=== PATIENT | male | born 1950 | race Caucasian/White ===

== ENCOUNTER 2020-03-04 06:42 | Inpatient (IN) | payer MEDICARE, MEDICAID ==
[~2020-03-04] VITALS: Ht 177 cm; Wt 106.8 kg
[2020-03-04] MEDS ORDERED: RT-ALBUTEROL/IPRATROPIUM 3 ML (DUONEB) VIAL INH PRN (08:00)
[2020-03-04] MEDS ORDERED: IPRATROPIUM INHALER (ATROVENT) 12.9 GM INH SCH (08:00)
[2020-03-04] MEDS ORDERED: RT-ALBUTEROL/IPRATROPIUM 3 ML (DUONEB) VIAL INH ONE (08:00)
[2020-03-04] MEDS ORDERED: NS IV 1000 ML 1,000 ML IV SCH (08:15)
[2020-03-04] MEDS ORDERED: PROPOFOL DRIP (ICU) 100 ML IV ONE (08:16)
[2020-03-04] MEDS ORDERED: proPOfol 200 MG/20 ML (DIPRIVAN) VIAL IV ONE (08:17)
[2020-03-04 08:45] VITALS: BP 137/94
[2020-03-04] MEDS: RT-ALBUTEROL INHALER HFA (VENTOLIN HFA) 18 GM IH SCH ×5 (08:47→21:16)
[2020-03-04] MEDS: IPRATROPIUM INHALER (ATROVENT) 12.9 GM INH SCH ×5 (08:47→21:17)
--- NOTE | 2020-03-04 09:14 | Anesthesia-Procedure Note ---
Procedures/Interventions Procedure Start/Stop/Diagnosis Date of Procedure: Mar 04, 2020 Start Time: 08:30 Referring Physician: Jacqueline Preprocedural Diagnosis: Respiratory Failure, PUI Brief History Called by switch house operator to intubate ICU 7 that is respiratory failure and PUI. Pt. was sitting up in bed in obvious respiratory distress. Sats mid 90's on NC, Explained procedure to pt and need to intubate which pt consented. Pt was pre oxygenated with 100% O2 per ambu bag. Induction per RN with propofol 100mg and Anectine 100mg. Glidescope3# grade 1 view. #8.0 ETT x1 attempt. BS coarse b/l +etco2 per capnograph. Tube secured per RT at 23/lip. Left radial A-line started under sterile technique. Good blood flow and wave form noted on monitor. Report to RN. Stop Time: 09:00 Postprocedural Diagnosis: Respiratory failure, PUI Intubation RSI: Yes 100% pre-Ox, [id number]: Yes Intubation Method: orotracheal Videoscope used: Yes Medications: Propofol, Succinylcholine Mask Ventilation: positive Positive End Tide CO2: Yes Breath Sounds after Intubation: bilateral-equal Intubated with ease: Yes Intubation Complications: no complications Post Intubation Xray-done: Yes Arterial Line Arterial Line Catheter: 20G Type: Radial Location: Left Procedure: prepped, draped in sterile fashion, good wave-form was obtained, patient tolerated procedure well, no immediate complications, post procedure dressing applied TENA DUNBAR CRNA Mar 04, 2020 09:14
[2020-03-04 09:25] LABS: BASOPHILS % (AUTO) 0 % (0-10); EOSINOPHILS % (AUTO) 0 % (0-10); HEMATOCRIT 39 % (40-54); HEMOGLOBIN 12.2 g/dL (13.3-17.7); LYMPHOCYTES # (AUTO) 0.6 10^3/uL (1.0-4.0); LYMPHOCYTES % (AUTO) 4 % (12-44); MEAN CORPUSCULAR HEMOGLOBIN 30 pg (25-34); MEAN CORPUSCULAR HGB CONC 31 g/dL (32-36); MEAN CORPUSCULAR VOLUME 97 fL (80-99); MEAN PLATELET VOLUME 11.7 fL (9.0-12.2); MONOCYTES # (AUTO) 0.4 10^3/uL (0.0-1.0); MONOCYTES % (AUTO) 2 % (0-12); NEUTROPHILS # (AUTO) 15.4 10^3/uL (1.8-7.8); NEUTROPHILS % (AUTO) 93 % (42-75); PLATELET COUNT 212 10^3/uL (130-400); WHITE BLOOD COUNT 16.5 10^3/uL (4.3-11.0)
[2020-03-04] MEDS: PROPOFOL DRIP (ICU) 100 ML IV SCH ×4 (09:30→20:26)
[2020-03-04 09:34] LABS: ALBUMIN 3.7 GM/DL (3.2-4.5)
[2020-03-04 09:35] LABS: POTASSIUM 4.2 MMOL/L (3.6-5.0)
[2020-03-04 09:36] LABS: CALCIUM 9.5 MG/DL (8.5-10.1)
[2020-03-04 09:37] LABS: TOTAL PROTEIN 6.9 GM/DL (6.4-8.2)
[2020-03-04 09:39] LABS: BILIRUBIN,TOTAL 0.7 MG/DL (0.1-1.0)
[2020-03-04 09:40] LABS: PHOSPHORUS 4.7 MG/DL (2.3-4.7)
[2020-03-04 09:41] LABS: CREATININE SERUM 1.94 MG/DL (0.60-1.30)
[2020-03-04 09:43] LABS: LYMPHOCYTES % (MANUAL) 2 %; MAGNESIUM 1.8 MG/DL (1.6-2.4); MONOCYTES % (MANUAL) 2 %; NEUTROPHILS % (MANUAL) 96 %; RBC MORPH NORMAL
--- NOTE | 2020-03-04 10:20 | Diagnostic Imaging Report ---
INDICATION: Central line placement Frontal chest obtained at 1010 a.m. and compared to same day at 0910 a.m. ET tube and NG tube are unchanged. There is new right IJ central catheter tip overlying the mid SVC. There is no pneumothorax or pleural fluid. Central vascular congestion and interstitial edema versus infiltrate is stable. IMPRESSION: New right IJ central catheter tip overlying mid SVC. No pneumothorax or pleural fluid following device placement. Otherwise no change compared to earlier today. Dictated by: Dictated on workstation # [id number]
--- NOTE | 2020-03-04 10:45 | Occ Therapy Progress Note ---
Therapy Progress Note OT orders received. Pt is currently intubated/ sedated. OT to continue to monitor status and initiate tx when medically stable/ able to participate in skilled tx. SURESH BLACKWELL OTR Mar 04, 2020 10:45
--- NOTE | 2020-03-04 11:10 | Physical Therapy Progress Note ---
Therapy Progress Note Orders received to perform PT eval on patient, patient is currently intubated and sedated. Will monitor and start when patient is medically appropriate and able to participate. MAKENNA AUGUSTIN PT Mar 04, 2020 11:10
--- NOTE | 2020-03-04 11:19 | NUR ---
[address] MOORE TO INTUBATE [address] MEYER REQUESTED ABG 1 HR AFTER INTUBATION 0825 ANESTHESIA IN ROOM, RT IN ROOM 0837 PROPOFOL 100 MG AND SUCCS A00MG ADMINISTERED BY ANESTHESIA 0838 PT BEING BAGGED 0839 PT INTUBATED, GOOD COLOR CHANGE 0842 PROPOFOL DRIP STARTED 0847 ANESTHESIA ATTEMPTING ARTLINE 0849 OG DOWN, X RAY IN ROOM 0850 CONSULT FOR CENTRAL LINE ORDERED [address] AVILES FOR CENTRAL LINE [address] AVILES IN ROOM FOR CENTRAL LINE
--- NOTE | 2020-03-04 11:24 | History & Physical-Hospitalist ---
History of Present Illness HPI/Chief Complaint CC: Respiratory failure requiring urgent intubation HPI: This is a 69yoWM patient transferred from [facility] early this am who presented with dyspnea and hypoxia. PE dx 03/02/20 placed on OAC Eliquis and DC home and given steroids and Lopressor for tachycardia but then returned with increased dyspnea requiring ER visit then move to [facility] ICU and patient was decompensating so Dr Phillips ordered intubation. More records will be reviewed. Dr Shelton and I conferred at 1150am. COVID swab pending but rapid was negative. Exam Limitations: clinical condition (intubated) Date Seen 03/04/20 Time Seen by a Provider: 11:00 Attending Physician Julieta Wynne MD PCP Naye Paniagua Referring Physician Date of Admission Mar 04, 2020 at 09:15 Home Medications & Allergies Home Medications Reviewed patient Home Medication Reconciliation performed by pharmacy medication reconciliations medical laboratory technicians and/or nursing. Patients Allergies have been reviewed. Allergies Allergies Coded Allergies No Known Drug Allergies (Ltvxxgwwve04/7/20) Past Wsnlfce-Bvccth-Kxxkht Hx Past Med/Social Hx: Reviewed Nursing Past Med/Soc Hx, Reviewed and Corrections made Patient Social History Smoking Status: Former Smoker Past Medical History Respiratory: COPD, Pulmonary Embolism (03/02/20), Sleep Apnea Cardiac: High Cholesterol, Hypertension, Peripheral Vascular Genitourinary: Renal Failure Review of Systems Constitutional: see HPI, malaise, weakness Respiratory: dyspnea on exertion, short of breath, wheezing Physical Exam Physical Exam Vital Signs Bad tableHeight, Weight, BMI Height: '" Weight: lbs. oz. kg; BMI Method: General Appearance: Chronically ill, Other (intubated) Respiratory: No Accessory Muscle Use, No Respiratory Distress, Decreased Breath Sounds, Wheezing Cardiovascular: Regular Rate, Rhythm, No Edema, No Gallop, No JVD, No Murmur, Normal Peripheral Pulses Extremity: Normal Capillary Refill, Normal Inspection, Normal Range of Motion, Non Tender, No Calf Tenderness, No Pedal Edema Results Results/Procedures Labs Laboratory Tests 03/04/20 09:09 Patient resulted labs reviewed. Assessment/Plan Admission Diagnosis Assessment: Acute respiratory failure requiring emergent intubation Recent acute PE diagnosed 03/02/20 placed on Eliquis COPD h/o smoker LORETTA HTN HLP Elevated BNP Plan: ICU consultation Anticoagulation Vent management Supportive care Empiric abx COVID swab pending use PPE in meantime ARF management Consult Dr Rodriguez Admission Status: Inpatient Order (span 2 midnights) Reason for Inpatient Admission: resp failure Clinical Quality Measures DVT/VTE Risk/Contraindication: Risk Factor Score Per Nursin RFS Level Per Nursing on Admit: 4+=Very High SELMA WILDE DO Mar 04, 2020 11:24
[2020-03-04 11:28] VITALS: BP 114/84
[2020-03-04] MEDS: ADVAIR HFA 115/21 MCG INHALER 8 GM IH SCH ×2 (11:29→21:17)
--- NOTE | 2020-03-04 11:30 | NUR ---
"Received dietary consult regarding pt's vent status. Est kcal needs: 1850 kcal | 20 kcal/kg Est Pro needs: 74 g Pro | 0.8 g Pro/kg Note pt is currently intubated/sedated. If pt is to remain NPO for more than 3d, would recommend the following TF: Pulmocare 1.5 kcal at goal rate of 55ml/hr. Begin at 10ml/hr and increase by 10ml q6h as medically able and as tolerated. Monitor gastric residuals for tolerance. At goal rate, provides 1980 kcal (21 kcal/kg); 83 g Pro (0.9 g Pro/kg); and 1036ml free water. Flush with 75ml water q4h for hydration status. With flushes, provides 1486ml free water. Will continue to follow and reassess as pt needs, intake, and status change. Yulissa Bee MS RD LD [phone] (cell)"
[2020-03-04] MEDS: DexMEDEtomidine PRE MIX 100 ML IV SCH ×2 (11:48→20:14)
[2020-03-04] MEDS ORDERED: PHARMACY TO DOSE IV SCH (12:00)
[2020-03-04] MEDS ORDERED: SUCCINYLCHOLINE INJ 100 MG/5 ML SYR/VIAL INJ ONE (12:15)
[2020-03-04 12:20] LABS: ABG OXYGEN SATURATION 100 % (94-100); ABG PCO2 44 MMHG (35-45); ABG PO2 220 MMHG (79-93); ABG TCO2 24.5 MMOL/L (21.0-31.0)
[2020-03-04] MEDS ORDERED: LACTATED RINGERS 1,000 ML IV SCH (12:23)
[2020-03-04 12:24] LABS: ABG PH 7.33 (7.37-7.43); ALLENS TEST ARTLINE
[2020-03-04 12:25] LABS: PATIENT TEMP 36.4; VENTILATOR YES
[2020-03-04 12:26] LABS: INSPIRED O2 60%
[2020-03-04] MEDS ORDERED: PIPERACILLIN/TAZO 4.5 GM/NS 100 ML IV NR ×2 (12:30)
[2020-03-04] MEDS ORDERED: meTOprolol 5 MG/5 ML (LOPRESSOR) VIAL IV NR (13:00)
[2020-03-04] MEDS ORDERED: VANCOMYCIN 2000 MG/NS 500 ML IVPB IV NR ×2 (13:00)
[2020-03-04] MEDS: LACTATED RINGERS 1,000 ML IV SCH ×5 (13:12→21:59)
[2020-03-04] MEDS: ENOXAPARIN 100 MG/1 ML (LOVENOX) SYR SC SCH (13:13)
[2020-03-04 13:50] VITALS: BP 143/87
--- NOTE | 2020-03-04 15:28 | Diagnostic Imaging Report ---
PROCEDURE: US Venous Lower Ext Garett. TECHNIQUE: Multiple real-time grayscale images were obtained over the lower extremities in various projections, bilaterally. Additional duplex Doppler and color Doppler images were also obtained. INDICATION: Pulmonary embolism. FINDINGS: Right lower extremity deep venous system shows normal compressibility with normal response to augmentation and Valsalva. Left common femoral vein as well as the left superficial femoral vein are patent. There is thrombus within the left popliteal vein. Note is made of bilateral superficial femoral artery occlusions as well. No fluid collections are seen. IMPRESSION: 1. No evidence of right lower extremity DVT. 2. Findings consistent with left popliteal DVT. 3. Bilateral SFA occlusions. Dictated by: Dictated on workstation # [id number]
--- NOTE | 2020-03-04 15:38 | Consultation-Cardiology ---
HPI-Cardiology Cardiology Consultation Date of Consultation 03/04/20 Date of Admission Time Seen by Provider: 11:00 Indication: Acute respiratory failure, elevated BNP HPI Patient is a 69 y/o male transferred from [facility] who presented with dyspnea and hypoxemia. PMH reviewed showing patient diagnosed PE on 03/02/2020. Was started on Eliquis, returned to ER with c/o increased dyspnea. Patient was quickly decompensating and was intubated. COVID rapid test negative, PCR pending. Noted to be tachycardic with HR in the 120's Home Medications & Allergies Allergies: Coded Allergies: No Known Drug Allergies (Unverified , 03/04/20) Home Medication List Reviewed: Yes WRH-Gjrmvc-Mpxapr Hx Patient Social History Smoking Status: Former Smoker Past Medical History Unknown at this time. Review of Systems-General Review of Systems ROS-Unable to Obtain: unable to obtain Constitutional: other (vent dependent, cannot provide [place]SE[place]) Reviewed Test Results Reviewed Test Results Lab Laboratory Tests 03/04/20 09:09: White Blood Count 16.5H, Red Blood Count 4.06L, Hemoglobin 12.2L, Hematocrit 39L , Mean Corpuscular Volume 97, Mean Corpuscular Hemoglobin 30, Mean Corpuscular Hemoglobin Concent 31L, Red Cell Distribution Width 14.7H, Platelet Count 212, Mean Platelet Volume 11.7, Immature Granulocyte % (Auto) 1, Neutrophils (%) (Auto) 93H, Lymphocytes (%) (Auto) 4L, Monocytes (%) (Auto) 2, Eosinophils (%) (Auto) 0, Basophils (%) (Auto) 0, Neutrophils # (Auto) 15.4H, Lymphocytes # (Auto) 0.6L, Monocytes # (Auto) 0.4, Eosinophils # (Auto) 0.0, Basophils # (Auto) 0.0, Immature Granulocyte # (Auto) 0.1, Neutrophils % (Manual) 96, Lymphocytes % (Manual) 2, Monocytes % (Manual) 2, Blood Morphology Comment NORMAL, Sodium Level 139, Potassium Level 4.2, Chloride Level 107, Carbon Dioxide Level 18L, Anion Gap 14, Blood Urea Nitrogen 42H, Creatinine 1.94H, Estimat Glomerular Filtration Rate 34, BUN/Creatinine Ratio 22, Glucose Level 171H, Lactic Acid Level 2.28*H, Calcium Level 9.5, Corrected Calcium 9.7, Phosphorus Level 4.7, Magnesium Level 1.8, Total Bilirubin 0.7, Aspartate Amino Transf (AST/SGOT) 108H, Alanine Aminotransferase (ALT/SGPT) 91H, Alkaline Phosphatase 35L, B-Type Natriuretic Peptide 862.1H, Total Protein 6.9, Albumin 3.7, Procalcitonin 0.11H 03/04/20 09:40: Coronavirus 2019 (GERTRUDE) Negative 03/04/20 11:30: Blood Gas Puncture Site ART LINE, Blood Gas Patient Temperature 36.4, Arterial Blood pH 7.33*L, Arterial Blood Partial Pressure CO2 44, Arterial Blood Partial Pressure O2 220H, Arterial Blood HCO3 23, Arterial Blood Total CO2 24.5, Arterial Blood Oxygen Saturation 100, Arterial Blood Base Excess -2.0, Gregorio Test ARTLINE, Blood Gas Ventilator Setting YES, Blood Gas Inspired Oxygen 60% 03/04/20 11:35: Lactic Acid Level 1.36, Triglycerides Level 217H 03/04/20 13:35: Lactic Acid Level 1.87 Microbiology 03/04/20 Influenza Types A,B Antigen (ANGEL) - Final, Complete ECG Impression ECG Initial ECG Rhythm: S.Tach Physical Exam Physical Exam Vital Signs Bad tableHeight, Weight, BMI Height: '" Weight: lbs. oz. kg; BMI Method: General Appearance: Chronically ill, Other (intubated) Respiratory: No Accessory Muscle Use, No Respiratory Distress, Decreased Breath Sounds, Wheezing Cardiovascular: No Gallop, No JVD, No Murmur, Normal Peripheral Pulses, Tachycardia, Other (trace edema BLE) Extremity: Normal Capillary Refill, Normal Inspection, Normal Range of Motion, Non Tender, No Calf Tenderness, No Pedal Edema A/P-Cardiology Admission Diagnosis Acute respiratory failure Recent PE Left popliteal DVT Tachycardia Assessment/Plan Acute respiratory failure requiring intubation, currently intubated and sedated. Rapid Covid negative, PCR pending. I will try to obtain records from [facility] for further review. Elevated BNP, planning for 2D Echo once out of isolation Acute renal insufficiency, receiving IV fluid, monitor renal function Mild elevation in liver enzymes. Continue to monitor Recent PE dx 03/02/2020, was on Eliquis as outpatient. Currently on Lovenox Left popliteal DVT Tachycardia- appears to be sinus tachycardia. Started on low-dose beta blockers, monitor response and tolerance Obesity Bilat SFA occlusion noted on vascular study done early today. Thank you for allowing us to participate in the management of Mr. Burns. This is Amy Sharma PA-C, as a scribe for Dr Rodriguez. Patient was seen and evaluated with Amy, examination performed, management plan was discussed, agree with the current scribed note, I made few changes to the note using Italic font Patient is intubated, ventilator dependent Acute respiratory failure, pulmonary embolism, maintained on Lovenox Mildly elevated BNP, will evaluate 2-D echo Started on low-dose beta blockers and monitor heart rate. Clinical Quality Measures DVT/VTE Risk/Contraindication: Risk Factor Score Per Nursin RFS Level Per Nursing on Admit: 4+=Very High AMY VILLASENOR Mar 04, 2020 15:38 LUKAS RODRIGUEZ MD Mar 04, 2020 16:07
[2020-03-04] MEDS: meTOprolol 5 MG/5 ML (LOPRESSOR) VIAL IV SCH (17:37)
--- NOTE | 2020-03-04 17:58 | Consultation - Surgery ---
History of Present Illness History of Present Illness Patient Consulted On(matthew/time) 03/04/20 08:55 Date Seen by Provider: Mar 04, 2020 Time Seen by Provider: 08:55 Reason for Visit: Acute respiratory failure, elevated BNP History of Present Illness Consult requested by Dr. Guillermo for central line placement. Patient is a 69-year-old male transferred from outside facility for dyspnea. Patient was in respiratory distress and had to be intubated. Patient unable to provide any history. Patient needing central line placement. I have been asked to place a central line emergently. Allergies and Home Medications Allergies Coded Allergies: No Known Drug Allergies (Unverified , 03/04/20) Patient Home Medication List Home Medication List Reviewed: No (Unavailable at this time) Past Ivehdvv-Tmsafy-Kwqprz Hx Patient Social History Smoking Status: Former Smoker Cardiovascular Cardiac Disorders: High Cholesterol, Hypertension, Peripheral Vascular Genitourinary Genitourinary Disorders: Renal Failure Family Medical History Significant Family History: No Pertinent Family Hx (Patient intubated unable to provide any information.) Review of Systems-General ROS-Unable to Obtain: Patient intubated unable to obtain Physical Exam-General Problems Physical Exam Vital Signs Bad tableGeneral Appearance: obese, other (Intubated, sedated) HEENT: normal ENT inspection, other (Slight JVD) Neck: non-tender, supple, normal inspection (Slight JVD) Respiratory: other (intubated, equal chest rise) Cardiovascular: JVD (slight), tachycardia Gastrointestinal: soft, other (obese) Rectal: deferred Back: normal inspection, no CVA tenderness Extremities: normal inspection Neurologic/Psychiatric: normal mood/affect, oriented x 3, other (intubated sedated) Skin: normal color, warm/dry Lymphatic: no adenopathy Data Review Labs Laboratory Tests 03/04/20 09:09: White Blood Count 16.5H, Red Blood Count 4.06L, Hemoglobin 12.2L, Hematocrit 39L , Mean Corpuscular Volume 97, Mean Corpuscular Hemoglobin 30, Mean Corpuscular Hemoglobin Concent 31L, Red Cell Distribution Width 14.7H, Platelet Count 212, Mean Platelet Volume 11.7, Immature Granulocyte % (Auto) 1, Neutrophils (%) (Auto) 93H, Lymphocytes (%) (Auto) 4L, Monocytes (%) (Auto) 2, Eosinophils (%) (Auto) 0, Basophils (%) (Auto) 0, Neutrophils # (Auto) 15.4H, Lymphocytes # (Auto) 0.6L, Monocytes # (Auto) 0.4, Eosinophils # (Auto) 0.0, Basophils # (Auto) 0.0, Immature Granulocyte # (Auto) 0.1, Neutrophils % (Manual) 96, Lymphocytes % (Manual) 2, Monocytes % (Manual) 2, Blood Morphology Comment NORMAL, Sodium Level 139, Potassium Level 4.2, Chloride Level 107, Carbon Dioxide Level 18L, Anion Gap 14, Blood Urea Nitrogen 42H, Creatinine 1.94H, Estimat Glomerular Filtration Rate 34, BUN/Creatinine Ratio 22, Glucose Level 171H, Lactic Acid Level 2.28*H, Calcium Level 9.5, Corrected Calcium 9.7, Phosphorus Level 4.7, Magnesium Level 1.8, Total Bilirubin 0.7, Aspartate Amino Transf (AST/SGOT) 108H, Alanine Aminotransferase (ALT/SGPT) 91H, Alkaline Phosphatase 35L, B-Type Natriuretic Peptide 862.1H, Total Protein 6.9, Albumin 3.7, Procalcitonin 0.11H 03/04/20 09:40: Coronavirus 2019 (GERTRUDE) Negative 03/04/20 11:30: Blood Gas Puncture Site ART LINE, Blood Gas Patient Temperature 36.4, Arterial Blood pH 7.33*L, Arterial Blood Partial Pressure CO2 44, Arterial Blood Partial Pressure O2 220H, Arterial Blood HCO3 23, Arterial Blood Total CO2 24.5, Arterial Blood Oxygen Saturation 100, Arterial Blood Base Excess -2.0, Gregorio Test ARTLINE, Blood Gas Ventilator Setting YES, Blood Gas Inspired Oxygen 60% 03/04/20 11:35: Lactic Acid Level 1.36, Triglycerides Level 217H 03/04/20 13:35: Lactic Acid Level 1.87 Microbiology 03/04/20 Influenza Types A,B Antigen (ANGEL) - Final, Complete Assessment/Plan Assessment/Plan Assessment/Plan Acute respiratory failure Requiring intubation Needing central line Placed emergently Chest x ray pending after central line placed. Clinical Quality Measures DVT/VTE Risk/Contraindication: Risk Factor Score Per Nursin RFS Level Per Nursing on Admit: 4+=Very High ROBERT AVILES DO Mar 04, 2020 17:58
[2020-03-04] MEDS: PIPERACILLIN/TAZOBACTAM (BULK) 4.5 GM in NS (IVPB) 100 ML IV SCH (18:06)
[2020-03-04 19:12] LABS: BILIRUBIN,URINE NEGATIVE (NEGATIVE); CLARITY,URINE CLEAR; COLOR,URINE YELLOW; GLUCOSE, URINE (UA) NEGATIVE (NEGATIVE); KETONES,URINE NEGATIVE (NEGATIVE); LEUKOCYTE ESTERASE ,URINE NEGATIVE (NEGATIVE); NITRITE,URINE NEGATIVE (NEGATIVE); PH,URINE 5.5 (5-9); PROTEIN,URINE 1+ (NEGATIVE)
[2020-03-04 19:18] LABS: BACTERIA,URINE TRACE /HPF; RBC,URINE RARE /HPF; SQUAMOUS EPITHELIAL CELL,UR RARE /HPF; WBC,URINE 0-2 /HPF
[2020-03-04 21:17] VITALS: BP 143/87
[2020-03-04 21:21] VITALS: BP 143/87
[2020-03-05] MEDS: meTOprolol 5 MG/5 ML (LOPRESSOR) VIAL IV SCH ×4 (00:32→17:08)
[2020-03-05] MEDS: PROPOFOL DRIP (ICU) 100 ML IV SCH ×5 (01:00→23:35)
[2020-03-05 02:44] VITALS: BP 125/84
[2020-03-05] MEDS: RT-ALBUTEROL INHALER HFA (VENTOLIN HFA) 18 GM IH SCH ×6 (02:44→22:31)
[2020-03-05] MEDS: IPRATROPIUM INHALER (ATROVENT) 12.9 GM INH SCH ×6 (02:44→22:32)
[2020-03-05] MEDS: PIPERACILLIN/TAZOBACTAM (BULK) 4.5 GM in NS (IVPB) 100 ML IV SCH ×3 (02:55→17:08)
--- NOTE | 2020-03-05 03:06 | OPERATIVE REPORT ---
DATE OF SERVICE: 03/04/2020 PREOPERATIVE DIAGNOSIS: Need for central line due to respiratory failure. POSTOPERATIVE DIAGNOSIS: Need for central line due to respiratory failure. PROCEDURE PERFORMED: Right internal jugular vein ultrasound-guided central line placement. SURGEON: Robert Lazo DO ANESTHESIA: 1% lidocaine 3 mL. COMPLICATIONS: None. INDICATIONS: The patient is a 69-year-old male who was transferred to [facility]. He is in respiratory failure. The patient had to be intubated. It has been requested that a central line be placed. This is to be placed emergently. DESCRIPTION OF PROCEDURE: The patient was prepped and draped in sterile fashion. The right internal jugular vein was isolated using ultrasound and under ultrasound guidance the right internal jugular vein, there was some lidocaine infiltrated into the subcutaneous tissue. The right internal jugular vein was then accessed, dark nonpulsatile blood was withdrawn. Guidewire was inserted through the needle, needle was removed. A #11 blade scalpel was used to make a small skin incision. Dilator was then advanced over the guidewire and removed. The triple lumen catheter was then advanced over the guidewire and the guidewire was removed. All ports were accessed and flushed without difficulty. The catheter was secured in the usual fashion. The area was washed and dried and sterile bandage was applied. The patient tolerated procedure well without any complications. Chest x-ray pending. Job ID: [id number] DocumentID: [id number] Dictated Date: 03/04/2020 21:14:53 Non Licensed Operator Date: 03/05/2020 03:05:37 Dictated By: ROBERT LAZO DO
[2020-03-05 03:27] LABS: ABG BASE EXCESS -3.9 MMOL/L (-2.5-2.5); ABG OXYGEN SATURATION 97 % (94-100); ABG PCO2 36 MMHG (35-45); ABG PH 7.37 (7.37-7.43); ABG PO2 91 MMHG (79-93); ABG TCO2 21.8 MMOL/L (21.0-31.0)
[2020-03-05 03:31] LABS: ALLENS TEST LINE; INSPIRED O2 21%; VENTILATOR YES
[2020-03-05] MEDS: DexMEDEtomidine PRE MIX 100 ML IV SCH ×3 (03:58→21:01)
[2020-03-05] MEDS: LACTATED RINGERS 1,000 ML IV SCH ×3 (05:07→18:27)
[2020-03-05] MEDS: MAGNESIUM 1 GM/100 ML IVPB 100 ML IV SCH (05:29)
[2020-03-05] MEDS: POTASSIUM CL 10MEQ/50ML IVPB 50 ML IV SCH (05:29)
[2020-03-05] MEDS: KCL 20 MEQ TAB (K-DUR) PO SCH (05:29)
[2020-03-05 05:39] LABS: BASOPHILS % (AUTO) 0 % (0-10); EOSINOPHILS % (AUTO) 0 % (0-10); HEMATOCRIT 35 % (40-54); HEMOGLOBIN 11.5 g/dL (13.3-17.7); LYMPHOCYTES # (AUTO) 0.8 10^3/uL (1.0-4.0); LYMPHOCYTES % (AUTO) 8 % (12-44); MEAN CORPUSCULAR HEMOGLOBIN 31 pg (25-34); MEAN CORPUSCULAR HGB CONC 33 g/dL (32-36); MEAN CORPUSCULAR VOLUME 95 fL (80-99); MEAN PLATELET VOLUME 12.3 fL (9.0-12.2); MONOCYTES # (AUTO) 0.3 10^3/uL (0.0-1.0); MONOCYTES % (AUTO) 4 % (0-12); NEUTROPHILS # (AUTO) 8.1 10^3/uL (1.8-7.8); NEUTROPHILS % (AUTO) 88 % (42-75); PLATELET COUNT 159 10^3/uL (130-400); WHITE BLOOD COUNT 9.2 10^3/uL (4.3-11.0)
[2020-03-05 05:42] LABS: ALBUMIN 3.1 GM/DL (3.2-4.5); POTASSIUM 4.3 MMOL/L (3.6-5.0)
[2020-03-05 05:45] LABS: TOTAL PROTEIN 5.6 GM/DL (6.4-8.2)
[2020-03-05 05:46] LABS: BILIRUBIN,TOTAL 0.5 MG/DL (0.1-1.0)
[2020-03-05 05:48] LABS: CREATININE SERUM 1.77 MG/DL (0.60-1.30); INR 1.3 (0.8-1.4); PHOSPHORUS 5.6 MG/DL (2.3-4.7); PROTHROMBIN TIME PATIENT 16.8 SEC (12.2-14.7)
[2020-03-05 05:51] LABS: MAGNESIUM 1.7 MG/DL (1.6-2.4)
[2020-03-05 07:06] VITALS: BP 125/82
[2020-03-05] MEDS: ADVAIR HFA 115/21 MCG INHALER 8 GM IH SCH ×2 (07:06→18:50)
--- NOTE | 2020-03-05 07:35 | Progress Note - Surgery ---
GERTRUDIS NUNEZ MED STUDENT 03/05/20 0735: Subjective Date Seen by a Provider: Mar 05, 2020 Time Seen by a Provider: 07:00 Subjective/Events-last exam Patient remains intubated and sedated. BP continues to be stable via arterial line. Continues to be tachycardic in the 120's. Pt. continues to be afebrile. Review of Systems Unable to obtain as patient is intubated/sedated. Focused Exam Lactate Level 03/04/20 09:09: Lactic Acid Level 2.28*H 03/04/20 11:35: Lactic Acid Level 1.36 03/04/20 13:35: Lactic Acid Level 1.87 Objective Exam Bad tableGeneral Appearance: Chronically ill, Mild Distress, Other (intubated) Respiratory: No Accessory Muscle Use, No Respiratory Distress, Decreased Breath Sounds, Wheezing Cardiovascular: No Gallop, No JVD, No Murmur, Normal Peripheral Pulses, Tachycardia, Other (trace edema BLE) Peripheral Pulses: 1+ Dorsalis Pedis (R), 1+ Left Dors-Pedis (L); 2+ Radial Pulses (R), 2+ Radial Pulses (L) Gastrointestinal: soft, other (obese/Colostomy present) Extremity: Normal Capillary Refill Neurologic/Psychiatric: Other (Pt intubated/sedated. ) Results Lab Laboratory Tests 03/04/20 09:09: White Blood Count 16.5H, Red Blood Count 4.06L, Hemoglobin 12.2L, Hematocrit 39L , Mean Corpuscular Volume 97, Mean Corpuscular Hemoglobin 30, Mean Corpuscular Hemoglobin Concent 31L, Red Cell Distribution Width 14.7H, Platelet Count 212, Mean Platelet Volume 11.7, Immature Granulocyte % (Auto) 1, Neutrophils (%) (Auto) 93H, Lymphocytes (%) (Auto) 4L, Monocytes (%) (Auto) 2, Eosinophils (%) (Auto) 0, Basophils (%) (Auto) 0, Neutrophils # (Auto) 15.4H, Lymphocytes # (Auto) 0.6L, Monocytes # (Auto) 0.4, Eosinophils # (Auto) 0.0, Basophils # (Auto) 0.0, Immature Granulocyte # (Auto) 0.1, Neutrophils % (Manual) 96, Lymp hocytes % (Manual) 2, Monocytes % (Manual) 2, Blood Morphology Comment NORMAL, Sodium Level 139, Potassium Level 4.2, Chloride Level 107, Carbon Dioxide Level 18L, Anion Gap 14, Blood Urea Nitrogen 42H, Creatinine 1.94H, Estimat Glomerular Filtration Rate 34, BUN/Creatinine Ratio 22, Glucose Level 171H, Lactic Acid Level 2.28*H, Calcium Level 9.5, Corrected Calcium 9.7, Phosphorus Level 4.7, Magnesium Level 1.8, Total Bilirubin 0.7, Aspartate Amino Transf (AST/SGOT) 108H , Alanine Aminotransferase (ALT/SGPT) 91H, Alkaline Phosphatase 35L, B-Type Natriuretic Peptide 862.1H, Total Protein 6.9, Albumin 3.7, Procalcitonin 0.11H 03/04/20 09:40: Coronavirus (COVID-19)(PCR) Negative, Coronavirus 2019 (GERTRUDE) Negative 03/04/20 11:30: Blood Gas Puncture Site ART LINE, Blood Gas Patient Temperature 36.4, Arterial Blood pH 7.33*L, Arterial Blood Partial Pressure CO2 44, Arterial Blood Partial Pressure O2 220H, Arterial Blood HCO3 23, Arterial Blood Total CO2 24.5, Arterial Blood Oxygen Saturation 100, Arterial Blood Base Excess -2.0, Gregorio Test ARTLINE, Blood Gas Ventilator Setting YES, Blood Gas Inspired Oxygen 60% 03/04/20 11:35: Lactic Acid Level 1.36, Triglycerides Level 217H 03/04/20 13:35: Lactic Acid Level 1.87 03/04/20 18:50: Urine Color YELLOW, Urine Clarity CLEAR, Urine pH 5.5, Urine Specific [place] 1.020, Urine Protein 1+H, Urine Glucose (UA) NEGATIVE, Urine Ketones NEGATIVE, Urine Nitrite NEGATIVE, Urine Bilirubin NEGATIVE, Urine Urobilinogen 0.2, Urine Leukocyte Esterase NEGATIVE, Urine RBC (Auto) NEGATIVE, Urine RBC RARE, Urine WBC 0-2, Urine Squamous Epithelial Cells RARE, Urine Crystals NONE, Urine Bacteria TRACE, Urine Casts NONE, Urine Mucus NEGATIVE, Urine Culture Indicated NO 03/05/20 03:10: White Blood Count 9.2, Red Blood Count 3.73L, Hemoglobin 11.5L, Hematocrit 35L, Mean Corpuscular Volume 95, Mean Corpuscular Hemoglobin 31, Mean Corpuscular Hemoglobin Concent 33, Red Cell Distribution Width 14.8H, Platelet Count 159, Mean Platelet Volume 12.3H, Immature Granulocyte % (Auto) 0, Neutrophils (%) (Auto) 88H, Lymphocytes (%) (Auto) 8L, Monocytes (%) (Auto) 4, Eosinophils (%) (Auto) 0, Basophils (%) (Auto) 0, Neutrophils # (Auto) 8.1H, Lymphocytes # (Auto) 0.8L, Monocytes # (Auto) 0.3, Eosinophils # (Auto) 0.0, Basophils # (Auto) 0.0, Immature Granulocyte # (Auto) 0.0, Prothrombin Time 16.8H, INR Comment 1.3, Activated Partial Thromboplast Time 42H, Blood Gas Puncture Site LFT ARTLINE, Blood Gas Patient Temperature 36.0, Arterial Blood pH 7.37, Arterial Blood Partial Pressure CO2 36, Arterial Blood Partial Pressure O2 91, Arterial Blood HCO3 21L, Arterial Blood Total CO2 21.8, Arterial Blood Oxygen Saturation 97, Arterial Blood Base Excess -3.9L, Gregorio Test LINE, Blood Gas Ventilator Setting YES, Blood Gas Inspired Oxygen 21%, Sodium Level 140, Potas sium Level 4.3, Chloride Level 109H, Carbon Dioxide Level 18L, Anion Gap 13, Blood Urea Nitrogen 46H, Creatinine 1.77H, Estimat Glomerular Filtration Rate 38, BUN/Creatinine Ratio 26, Glucose Level 135H, Calcium Level 9.0, Corrected Calcium 9.7, Phosphorus Level 5.6H, Magnesium Level 1.7, Total Bilirubin 0.5, Aspartate Amino Transf (AST/SGOT) 140H, Alanine Aminotransferase (ALT/SGPT) 128H , Alkaline Phosphatase 28L, Total Protein 5.6L, Albumin 3.1L Microbiology 03/04/20 Influenza Types A,B Antigen (ANGEL) - Final, Complete Assessment/Plan Assessment/Plan Admission Diagonsis Acute on Chronic Respiratory Failure Assessment/Plan Acute respiratory failure Acute Renal Insufficiency Left popliteal DVT 1. Continue propofol and precedex 2. Continue IV antibiotics 3. Continue to monitor hemodynamic status Clinical Quality Measures DVT/VTE Risk/Contraindication: Risk Factor Score Per Nursin RFS Level Per Nursing on Admit: 4+=Very High ROBERT LAZO DO 03/05/20 1604: Subjective Subjective/Events-last exam Patient intubated/sedated. Central line no issues. Objective Exam General Appearance: Other (intubated) Cardiovascular: Tachycardia, Other (trace edema BLE) Gastrointestinal: soft, other (obese/Colostomy present) Extremity: Normal Capillary Refill Neurologic/Psychiatric: No Alert, No Oriented x3; Other (Pt intubated/sedated. ) Skin: Normal Color, Warm/Dry Lymphatic: No Adenopathy Assessment/Plan Assessment/Plan Assessment/Plan Acute respiratory failure Acute Renal Insufficiency Left popliteal DVT central line placed yesterday, no issues with it no surgical issues at this time, will sign off call if needed. Supervisory-Addendum Brief Verification & Attestation Participated in pt care: history, MDM, physical Personally performed: exam, history, MDM, supervision of care Care discussed with: Medical Student Procedures: n/a Results interpretation: Verified all documentation Verification and Attestation of Medical Student E/M Service A medical student performed and documented this service in my presence. I reviewed and verified all information documented by the medical student and made modifications to such information, when appropriate. I personally performed the physical exam and medical decision making. Robert Lazo, Mar 05, 2020,16:04 GERTRUDIS NUNEZ MED STUDENT Mar 05, 2020 07:35 ROBERT LAZO DO Mar 05, 2020 16:04
[2020-03-05] MEDS: PANTOPRAZOLE 40 MG (PROTONIX) VIAL IV SCH (08:10)
--- NOTE | 2020-03-05 08:13 | Physical Therapy Progress Note ---
Therapy Progress Note Patient remains sedated and intubated. PT will continue to monitor patient status and initiate treatment when patient is medically stable and able to actively participate with skilled therapy. THEO WARD PT Mar 05, 2020 08:13
--- NOTE | 2020-03-05 08:47 | Cardiology Progress Note ---
Subjective Date Seen by Provider: Mar 05, 2020 Time Seen by Provider: 08:45 Subjective/Events-last exam Patient is sedated and intubated Review of Systems General: Other (unable to provide review of systems) Focused Exam Lactate Level 03/04/20 09:09: Lactic Acid Level 2.28*H 03/04/20 11:35: Lactic Acid Level 1.36 03/04/20 13:35: Lactic Acid Level 1.87 Objective-Cardiology Exam Last Set of Vital Signs Bad tableI&O Intake and Output 03/05/20 00:00 Intake Total 7060 ml Output Total 1050 ml Balance 6010 ml Intake Oral 0 ml IV Total 7060 ml Output Urine Total 925 ml Gastric Drainage Total 125 ml Daily Weight Change No General: Other (sedated and intubated) HEENT: Atraumatic, PERRLA Neck: Supple Lungs: Normal Air Movement Heart: Normal S1, Normal S2, Other (tachycardia) Abdomen: Normal Bowel Sounds, Other (colostomy that) Extremities: No Clubbing, No Cyanosis, Other (mild edema) Skin: No Rashes Neuro: Other (sedated and intubated) Psych/Mental Status: Other (sedated and intubated) Results Lab Laboratory Tests 03/04/20 09:09 03/05/20 03:10 A/P-Cardiology Admission Diagnosis Acute respiratory failure Recent PE Left popliteal DVT Tachycardia Assessment/Plan Acute respiratory failure, ventilatory dependent, managed by primary care team DVT, probable PE, receiving Lovenox, blood pressure is stable still tachycardic Sinus tachycardia probably secondary to pulmonary embolism, receiving Lovenox, I will evaluate 2-D echo Acute renal insufficiency, renal function are improving slowly Elevated liver enzymes improving slowly. Continue to monitor Clinical Quality Measures DVT/VTE Risk/Contraindication: Risk Factor Score Per Nursin RFS Level Per Nursing on Admit: 4+=Very High LUKAS PIMENTEL MD Mar 05, 2020 08:46
[2020-03-05] MEDS ORDERED: CARV25TA PO (09:40)
[2020-03-05] MEDS ORDERED: APIX5TAB PO (09:40)
[2020-03-05] MEDS ORDERED: LORA-404 PO (09:40)
[2020-03-05] MEDS ORDERED: LISI40TA PO (09:40)
[2020-03-05] MEDS ORDERED: VENL75CA93 PO (09:40)
[2020-03-05] MEDS ORDERED: ALBU2.5V4 NEB (09:40)
[2020-03-05] MEDS ORDERED: FENO160T12 PO (09:40)
[2020-03-05] MEDS ORDERED: DIPH25CA79 PO (09:40)
[2020-03-05] MEDS ORDERED: UMEC1BLS INH (09:40)
[2020-03-05] MEDS ORDERED: HYDR25TA4 PO (09:40)
[2020-03-05] MEDS ORDERED: ALBU18HF2 INH (09:41)
--- NOTE | 2020-03-05 09:42 | NUR ---
UNABLE TO SPEAK WITH THE PT AT THIS TIME- I WAS ABLE TO GET AHOLD OF HIS ROLF AND WENT THRU THE EXT MED HISTORY TO COMPLETE THE MED REC HCTZ 25MG- DIRECTIONS SHOW 1 & 1/2 TAB DAILY BUT ACCORDING TO ROLF PT ONLY TAKES 1 TAB DAILY OTC MEDS: BENADRYL
--- NOTE | 2020-03-05 10:56 | Progress Note - Hospitalist ---
Subjective HPI/CC On Admission Date Seen by Provider: Mar 05, 2020 Time Seen by Provider: 11:00 CC: Respiratory failure requiring urgent intubation HPI: This is a 69yoWM patient transferred from [facility] early this am who presented with dyspnea and hypoxia. PE dx 03/02/20 placed on OAC Eliquis and DC home and given steroids and Lopressor for tachycardia but then returned with increased dyspnea requiring ER visit then move to [facility] ICU and patient was decompensating so Dr Phillips ordered intubation. More records will be reviewed. Dr Shelton and I conferred at 1150am. COVID swab pending but rapid was negative. Subjective/Events-last exam Dr Rodriguez read ECHO and EF is 10% Patient remains intubated Critical care maintained Bilateral thrombosis in legs noted Elevated troponin noted WBC 16 to 9.2 7.3736/ Focused Exam Lactate Level 03/04/20 09:09: Lactic Acid Level 2.28*H 03/04/20 11:35: Lactic Acid Level 1.36 03/04/20 13:35: Lactic Acid Level 1.87 Objective Exam Vital Signs Vital Signs Date Time Temp Pulse Resp B/P (MAP) Pulse Ox O2 Delivery O2 Flow Rate FiO2 03/05/20 21:01 36.6 126 24 123/84 98 Mechanical Ventilator 21.00 03/05/20 19:53 21 Capillary Refill : Greater Than 3 Seconds General Appearance: No Apparent Distress, WD/WN, Chronically ill, Other (sedated) Respiratory: Lungs Clear Cardiovascular: Regular Rate, Rhythm Results/Procedures Lab Laboratory Tests 03/05/20 03:10 Patient resulted labs reviewed. Assessment/Plan Assessment and Plan Assess & Plan/Chief Complaint Assessment: Acute respiratory failure requiring emergent intubation Recent acute PE diagnosed 03/02/20 placed on Eliquis COPD h/o smoker LORETTA HTN HLP Elevated BNP Bilateral DVT Elevated troponin Plan: ICU consultation Anticoagulation Vent management Supportive care Empiric abx COVID swab neg ARF management Consult Dr Rodriguez Clinical Quality Measures DVT/VTE Risk/Contraindication: Risk Factor Score Per Nursin RFS Level Per Nursing on Admit: 4+=Very High SELMA WILDE DO Mar 05, 2020 10:56
[2020-03-05 11:22] VITALS: BP 127/85
--- NOTE | 2020-03-05 12:13 | Occ Therapy Progress Note ---
Therapy Progress Note Continuing to monitor pt. Pt. continues to be sedated and on mechanical ventilation. 1213 ELISA DARLING OT Mar 05, 2020 12:13
[2020-03-05] MEDS: ENOXAPARIN 100 MG/1 ML (LOVENOX) SYR SC SCH (13:12)
[2020-03-05] MEDS: VANCOMYCIN 1500 MG/NS 500 ML IVPB IV SCH ×2 (13:14)
[2020-03-05 15:15] VITALS: BP 129/88
[2020-03-05 18:51] VITALS: BP 126/85
[2020-03-05 22:32] VITALS: BP 120/82
[2020-03-06] MEDS: meTOprolol 5 MG/5 ML (LOPRESSOR) VIAL IV SCH ×5 (00:15→23:17)
[2020-03-06] MEDS ORDERED: dilTIAZem DRIP PRE-MIX 0 ML IV ONE (01:23)
[2020-03-06] MEDS: LACTATED RINGERS 1,000 ML IV SCH ×4 (01:41→23:17)
[2020-03-06 02:12] VITALS: BP 120/81
[2020-03-06] MEDS: IPRATROPIUM INHALER (ATROVENT) 12.9 GM INH SCH ×6 (02:12→22:58)
[2020-03-06] MEDS: RT-ALBUTEROL INHALER HFA (VENTOLIN HFA) 18 GM IH SCH ×7 (02:12→22:59)
[2020-03-06] MEDS: PIPERACILLIN/TAZOBACTAM (BULK) 4.5 GM in NS (IVPB) 100 ML IV SCH ×3 (02:15→16:14)
[2020-03-06 03:54] LABS: ABG BASE EXCESS -3.5 MMOL/L (-2.5-2.5); ABG OXYGEN SATURATION 96 % (94-100); ABG PCO2 35 MMHG (35-45); ABG PH 7.39 (7.37-7.43); ABG PO2 83 MMHG (79-93); ABG TCO2 21.6 MMOL/L (21.0-31.0)
[2020-03-06 03:55] LABS: ALLENS TEST NEGATIVE; INSPIRED O2 21; PATIENT TEMP 37.3; VENTILATOR YES
[2020-03-06 03:56] LABS: BASOPHILS % (AUTO) 0 % (0-10); EOSINOPHILS % (AUTO) 0 % (0-10); HEMATOCRIT 36 % (40-54); HEMOGLOBIN 11.4 g/dL (13.3-17.7); LYMPHOCYTES # (AUTO) 2.6 10^3/uL (1.0-4.0); LYMPHOCYTES % (AUTO) 27 % (12-44); MEAN CORPUSCULAR HEMOGLOBIN 30 pg (25-34); MEAN CORPUSCULAR HGB CONC 32 g/dL (32-36); MEAN CORPUSCULAR VOLUME 96 fL (80-99); MEAN PLATELET VOLUME 11.8 fL (9.0-12.2); MONOCYTES # (AUTO) 0.5 10^3/uL (0.0-1.0); MONOCYTES % (AUTO) 5 % (0-12); NEUTROPHILS # (AUTO) 6.6 10^3/uL (1.8-7.8); NEUTROPHILS % (AUTO) 68 % (42-75); PLATELET COUNT 169 10^3/uL (130-400); WHITE BLOOD COUNT 9.8 10^3/uL (4.3-11.0)
[2020-03-06 04:05] LABS: POTASSIUM 3.8 MMOL/L (3.6-5.0)
[2020-03-06 04:07] LABS: CALCIUM 8.6 MG/DL (8.5-10.1)
[2020-03-06 04:11] LABS: CREATININE SERUM 1.85 MG/DL (0.60-1.30); PHOSPHORUS 3.6 MG/DL (2.3-4.7)
[2020-03-06 04:14] LABS: MAGNESIUM 1.8 MG/DL (1.6-2.4)
[2020-03-06] MEDS: PROPOFOL DRIP (ICU) 100 ML IV SCH ×4 (04:15→23:16)
[2020-03-06] MEDS: DexMEDEtomidine PRE MIX 100 ML IV SCH ×4 (04:16→23:17)
[2020-03-06] MEDS: MAGNESIUM 1 GM/100 ML IVPB 100 ML IV SCH (05:53)
[2020-03-06] MEDS: KCL 20 MEQ TAB (K-DUR) PO SCH (05:53)
[2020-03-06] MEDS: POTASSIUM CL 10MEQ/50ML IVPB 50 ML IV SCH (05:53)
[2020-03-06] MEDS: PANTOPRAZOLE 40 MG (PROTONIX) VIAL IV SCH (07:40)
--- NOTE | 2020-03-06 08:15 | Physical Therapy Progress Note ---
Therapy Progress Note Patient remains sedated and intubated. PT to continue to follow patient status and initiate treatment when medically stable and able to actively participate with skilled therapy. THEO WARD PT Mar 06, 2020 08:15
[2020-03-06] MEDS ORDERED: HEParin (CATH LAB) 2,000 ML IV ONE (09:33)
[2020-03-06] MEDS ORDERED: LIDOCAINE 1% INJ 20 ML 20 ML VIAL ONE (09:33)
--- NOTE | 2020-03-06 09:40 | Cardiology Progress Note ---
Subjective Date Seen by Provider: Mar 06, 2020 Time Seen by Provider: 09:37 Subjective/Events-last exam Patient is sedated and intubated, unable to provide history Review of Systems General: Other (sedated and intubated, unable to provide review of systems) Focused Exam Lactate Level 03/04/20 09:09: Lactic Acid Level 2.28*H 03/04/20 11:35: Lactic Acid Level 1.36 03/04/20 13:35: Lactic Acid Level 1.87 Objective-Cardiology Exam Last Set of Vital Signs Vital Signs 03/06/20 03/06/20 03/06/20 03/06/20 04:16 07:40 07:54 09:00 Temp 36.0 Pulse 129 Resp 24 B/P (MAP) 125/83 Pulse Ox 98 O2 Delivery Mechanical Ventilator O2 Flow Rate 21.00 Capillary Refill : Less Than 3 Seconds I&O Intake and Output 03/06/20 00:00 Intake Total 1500 ml Output Total 1205 ml Balance 295 ml Intake Oral 0 ml IV Total 1500 ml Output Urine Total 1205 ml General: Other (sedated and intubated) HEENT: Atraumatic, PERRLA Neck: Supple Lungs: Normal Air Movement Heart: Normal S1, Normal S2, Other (tachycardia) Abdomen: Normal Bowel Sounds, Other (colostomy that) Extremities: No Clubbing, No Cyanosis, Other (mild edema) Skin: No Rashes Neuro: Other (sedated and intubated) Psych/Mental Status: Other (sedated and intubated) Results Lab Laboratory Tests 03/06/20 03:38 A/P-Cardiology Admission Diagnosis Acute respiratory failure Recent PE Left popliteal DVT Tachycardia Assessment/Plan Acute respiratory failure, ventilatory dependent, managed by primary care team Patient has been having episode of shortness of breath and recurrent respiratory failure since December 2019, multiple hospitalization requiring BiPAP, deteriorated recently and transferred to our hospital due to lack of beds in [facility]. Congestive heart failure, acute left ventricular systolic dysfunction, ejection fraction 10 percent, unknown etiology, probably ischemic, no previous cardiac workup was done, discussed with his in length and details about the complexity of his condition, had slight elevation in troponin. I am planning to proceed with cardiac catheterization possible PTCA, procedure was explained in length, all pros and cons were explained, risk of complication including renal failure and sudden were explained. History of DVT, patient has been maintained on anticoagulation, reported by his that he had it since 2018 History of colostomy done in 2018. Acute renal insufficiency, slightly worsening renal function. Continue to monitor Elevated liver enzymes, probably secondary to poor cardiac output. Continue to monitor Clinical Quality Measures DVT/VTE Risk/Contraindication: Risk Factor Score Per Nursin RFS Level Per Nursing on Admit: 4+=Very High LUKAS PIMENTEL MD Mar 06, 2020 09:40
--- NOTE | 2020-03-06 09:41 | Cardiac Procedure Note-CS/ASA ---
Pre-Procedure Note Pre-Op Procedure Note H&P Reviewed The H&P was reviewed, patient examined and no changes noted. Date H&P Reviewed: Mar 06, 2020 Time H&P Reviewed: 09:40 Conscious Sedation Pre-Proced Time 09:40 ASA Score 3 For ASA 3 and 4: Consider anesthesia and medical clearance. Also, for patients with a history of failed moderate sedation consider anesthesia. Airway Lungs Heart ASA score ASA 1: a normal healthy patient ASA 2: a patient with a mild systemic disease (mid diabetes, controlled hypertension, obesity ASA 3: a patient with a severe systemic disease that limits activity (angina, COPD, prior Myocardial infarction) x ASA 4: a patient with an incapacitating disease that is a constant threat to life (CHF, renal failure) ASA 5: a moribund patient not expected to survive 24 hrs. (ruptured aneurysm) ASA 6: a declared brain- patient whose organs are being harvested. For emergent operations, add the letter E after the classification Mallampati Classification Grade 3 Sedation Plan Analgesia, Amnesia, Plan communicated to team members, Discussed options with patient/fam, Discussed risks with patient/fam Patient is sedated and intubated Risk and benefits discussed with his , we'll continue with sedation during the procedure The patient is an appropriate candidate to undergo the planned procedure, sedation, and anesthesia. The patient immediately re-assessed prior to indication. LUKAS PIMENTEL MD Mar 06, 2020 09:41
[2020-03-06] MEDS ORDERED: BUMETANIDE 1 MG/4 ML (BUMEX) VIAL IV NR (10:30)
--- NOTE | 2020-03-06 10:33 | Cardiac Cath Report ---
Cardiac Cath Report Physician (s)/[employer]er (s) Physician LUKAS PIMENTEL MD Pre-Procedure Diagnosis Pre-Procedure Diagnosis: congestive heart failure Post-Procedure Note Procedure Start Date: Mar 06, 2020 Name of Procedure: Left heart catheterization Findings/Procedure Note PROCEDURE NOTE: 69 years old gentleman with severe cardiomyopathy ejection fraction 10-15 percent, no previous cardiac history, discussed the management plan with his and recommended cardiac catheterization possible PTCA. After explaining the procedure to the , all pros and cons were explained, al l questions were answered. The patient signed the consent and then he was placed on the cardiac catheterization laboratory. Groin was prepped SL fashion local anesthesia was used. Sheath placed in the right femoral artery. Erica right and left catheter were used to access the coronary system. Erica right catheter advanced to the left ventricular cavity, pressure was measured no left ventriculogram was done At the end of the procedure the sheath was removed. Closure device was used FINDINGS: Hemodynamics LV 117/24, end-diastolic pressure 24 Aorta 100/80 ANATOMY: Left Main is free of obstructive disease Left Anterior Descending has mild disease nonobstructive disease Left Circumflex has mild disease nonobstructive disease Right Coronary Artery has mild ectasia with slow flow nonobstructive disease LV Gram was not done, pressure was measured, significantly elevated left ventricular end-diastolic pressure CONCLUSION: 1. Mild coronary artery disease nonobstructive disease 2. Severe cardiomyopathy nonischemic in nature with elevated left ventricular end-diastolic pressure DISCUSSION AND RECOMMENDATION: Conservative management is recommended, we will start on diuretic cautiously and evaluate tolerance and response Anesthesia Type: Conscious Sedation Estimated blood loss (mL): 15 ml Post-Procedure Diagnosis Post-operative diagnosis: Congestive heart failure Acute respiratory failure Hypotensive shock DVT LUKAS PIMENTEL MD Mar 06, 2020 10:33 am
--- NOTE | 2020-03-06 10:41 | Progress Note - Hospitalist ---
Subjective HPI/CC On Admission Date Seen by Provider: Mar 07, 2020 Time Seen by Provider: 10:00 CC: Respiratory failure requiring urgent intubation HPI: This is a 69yoWM patient transferred from [facility] early this am who presented with dyspnea and hypoxia. PE dx 03/02/20 placed on OAC Eliquis and DC home and given steroids and Lopressor for tachycardia but then returned with increased dyspnea requiring ER visit then move to [facility] ICU and patient was decompensating so Dr Phillips ordered intubation. More records will be reviewed. Dr Shelton and I conferred at 1150am. COVID swab pending but rapid was negative. Subjective/Events-last exam Patient had cath which revealed minimal coronary disease EF 10% is nonischemic cardiomyopathy Creat 1.8 Extubation will be attempted Dr Rodriguez reports his told him he has been in the hospital since November with ER visits and admits since that time Focused Exam Lactate Level 03/04/20 09:09: Lactic Acid Level 2.28*H 03/04/20 11:35: Lactic Acid Level 1.36 03/04/20 13:35: Lactic Acid Level 1.87 Objective Exam Vital Signs Vital Signs Date Time Temp Pulse Resp B/P (MAP) Pulse Ox O2 Delivery O2 Flow Rate FiO2 03/07/20 04:02 Mechanical Ventilator 21 03/07/20 03:36 21.00 03/07/20 03:00 106 100 03/07/20 02:53 36.7 52 Capillary Refill : Less Than 3 Seconds General Appearance: No Apparent Distress, Chronically ill, Other (intubated) Respiratory: Decreased Breath Sounds Cardiovascular: Regular Rate, Rhythm Results/Procedures Lab Laboratory Tests 03/07/20 02:34 Patient resulted labs reviewed. Assessment/Plan Assessment and Plan Assess & Plan/Chief Complaint Assessment: Acute respiratory failure requiring emergent intubation Recent acute PE diagnosed 03/02/20 placed on Eliquis COPD h/o smoker LORETTA HTN HLP Elevated BNP Bilateral DVT Elevated troponin Plan: ICU consultation Anticoagulation Vent management Supportive care Empiric abx COVID swab neg ARF management Consult Dr Rodriguez 03/06/20: s/p cardiac cath revealing non-ischemic cardiomyopathy Extubate? Clinical Quality Measures DVT/VTE Risk/Contraindication: Risk Factor Score Per Nursin RFS Level Per Nursing on Admit: 4+=Very High SELMA WILDE DO Mar 06, 2020 10:41
[2020-03-06] MEDS: ADVAIR HFA 115/21 MCG INHALER 8 GM IH SCH ×2 (10:51→19:27)
[2020-03-06 10:52] VITALS: BP 120/82
[2020-03-06 10:58] VITALS: BP 120/82
[2020-03-06] MEDS: ENOXAPARIN 100 MG/1 ML (LOVENOX) SYR SC SCH (11:16)
[2020-03-06] MEDS ORDERED: TROUGH ORDER-PHARMACY XX NR (12:00)
[2020-03-06] MEDS: VANCOMYCIN 1500 MG/NS 500 ML IVPB IV SCH ×2 (13:23)
[2020-03-06 15:06] VITALS: BP 130/79
--- NOTE | 2020-03-06 15:11 | NUR ---
pt is off sedation. pt is thrashing around. pt is very agitated. pt will not follow commands. rt does not think pt should be extubated today. Addendum: 03/06/20 at 1511 by RICKY BLANCO RT Amended: Links added.
[2020-03-06 16:15] LABS: ABG BASE EXCESS -3.8 MMOL/L (-2.5-2.5); ABG OXYGEN SATURATION 100 % (94-100); ABG PCO2 30 MMHG (35-45); ABG PH 7.43 (7.37-7.43); ABG PO2 191 MMHG (79-93); ABG TCO2 20.7 MMOL/L (21.0-31.0)
[2020-03-06 16:17] LABS: INSPIRED O2 40%; PATIENT TEMP 36.5; VENTILATOR YES
[2020-03-06 16:18] LABS: ALLENS TEST ART LINE
[2020-03-06 19:29] VITALS: BP 113/78
[2020-03-06 22:59] VITALS: BP 113/78
[2020-03-07] MEDS: DexMEDEtomidine PRE MIX 100 ML IV SCH ×6 (00:03→21:25)
[2020-03-07] MEDS: IPRATROPIUM INHALER (ATROVENT) 12.9 GM INH SCH ×6 (01:47→22:38)
[2020-03-07] MEDS: RT-ALBUTEROL INHALER HFA (VENTOLIN HFA) 18 GM IH SCH ×6 (01:47→22:37)
[2020-03-07 02:29] VITALS: BP 113/75
[2020-03-07] MEDS: PIPERACILLIN/TAZOBACTAM (BULK) 4.5 GM in NS (IVPB) 100 ML IV SCH ×3 (02:53→18:38)
[2020-03-07] MEDS: PROPOFOL DRIP (ICU) 100 ML IV SCH ×3 (02:53→10:07)
[2020-03-07 03:06] LABS: BASOPHILS # (AUTO) 0.1 10^3/uL (0.0-0.1); BASOPHILS % (AUTO) 1 % (0-10); EOSINOPHILS # (AUTO) 0.1 10^3/uL (0.0-0.3); EOSINOPHILS % (AUTO) 2 % (0-10); HEMATOCRIT 37 % (40-54); HEMOGLOBIN 11.7 g/dL (13.3-17.7); LYMPHOCYTES # (AUTO) 1.7 10^3/uL (1.0-4.0); LYMPHOCYTES % (AUTO) 18 % (12-44); MEAN CORPUSCULAR HEMOGLOBIN 31 pg (25-34); MEAN CORPUSCULAR HGB CONC 32 g/dL (32-36); MEAN CORPUSCULAR VOLUME 96 fL (80-99); MEAN PLATELET VOLUME 11.6 fL (9.0-12.2); MONOCYTES # (AUTO) 0.5 10^3/uL (0.0-1.0); MONOCYTES % (AUTO) 5 % (0-12); NEUTROPHILS # (AUTO) 6.6 10^3/uL (1.8-7.8); NEUTROPHILS % (AUTO) 74 % (42-75); PLATELET COUNT 154 10^3/uL (130-400)
[2020-03-07 03:15] LABS: ABG OXYGEN SATURATION 100 % (94-100); ABG PCO2 36 MMHG (35-45); ABG PH 7.37 (7.37-7.43); ABG PO2 185 MMHG (79-93); ABG TCO2 21.5 MMOL/L (21.0-31.0)
[2020-03-07 03:16] LABS: INSPIRED O2 50; PATIENT TEMP 36.8; VENTILATOR YES
[2020-03-07 03:20] LABS: POTASSIUM 3.6 MMOL/L (3.6-5.0)
[2020-03-07 03:21] LABS: CALCIUM 8.6 MG/DL (8.5-10.1)
[2020-03-07 03:25] LABS: CREATININE SERUM 1.79 MG/DL (0.60-1.30); PHOSPHORUS 3.6 MG/DL (2.3-4.7)
[2020-03-07 03:28] LABS: MAGNESIUM 1.8 MG/DL (1.6-2.4)
[2020-03-07] MEDS: POTASSIUM CL 10MEQ/50ML IVPB 50 ML IV SCH (04:09)
[2020-03-07] MEDS: KCL 20 MEQ TAB (K-DUR) PO SCH (04:09)
[2020-03-07] MEDS: MAGNESIUM 1 GM/100 ML IVPB 100 ML IV SCH (04:09)
[2020-03-07] MEDS: LACTATED RINGERS 1,000 ML IV SCH ×3 (05:21→21:25)
[2020-03-07] MEDS: meTOprolol 5 MG/5 ML (LOPRESSOR) VIAL IV SCH ×4 (05:24→23:22)
[2020-03-07 07:32] VITALS: BP 106/75
[2020-03-07] MEDS: ADVAIR HFA 115/21 MCG INHALER 8 GM IH SCH ×2 (07:32→18:55)
[2020-03-07] MEDS: PANTOPRAZOLE 40 MG (PROTONIX) VIAL IV SCH (08:34)
[2020-03-07] MEDS ORDERED: BUMETANIDE 1 MG/4 ML (BUMEX) VIAL IV NR (09:15)
--- NOTE | 2020-03-07 10:00 | Physical Therapy Progress Note ---
Therapy Progress Note pt remains on mechanical ventilator, no skilled intervention indicated at this time. ART FRAZIER PT Mar 07, 2020 10:00
--- NOTE | 2020-03-07 10:30 | Diagnostic Imaging Report ---
EXAMINATION: Chest 1 view HISTORY: Respiratory failure COMPARISON: 03/04/2020 FINDINGS: Heart size and pulmonary vasculature are stable. Lines and tubes are unchanged. There is a new small right pleural effusion with mild bibasilar atelectasis or consolidation. The osseous structures are intact. IMPRESSION: 1. New right pleural effusion with bibasilar atelectasis or consolidation. 2. Lines and tubes are unchanged. Dictated by: Dictated on workstation # [id number]
[2020-03-07 10:41] VITALS: BP 129/79
--- NOTE | 2020-03-07 11:12 | Cardiology Progress Note ---
Subjective Date Seen by Provider: Mar 07, 2020 Time Seen by Provider: 11:10 Subjective/Events-last exam Patient is laying down in bed, intubated, being weaned Review of Systems General: Other (unable to provide review of systems) Focused Exam Lactate Level 03/04/20 11:35: Lactic Acid Level 1.36 03/04/20 13:35: Lactic Acid Level 1.87 Objective-Cardiology Exam Last Set of Vital Signs Vital Signs 03/07/20 03/07/20 03/07/20 03/07/20 06:18 10:00 10:32 10:41 Temp 36.7 Pulse 126 Resp 21 B/P (MAP) 131/85 Pulse Ox 95 O2 Delivery Mechanical Ventilator O2 Flow Rate 21.00 FiO2 21 Capillary Refill : Less Than 3 Seconds I&O Intake and Output 03/07/20 00:00 Intake Total 2200 ml Output Total 2875 ml Balance -675 ml Intake Oral 0 ml IV Total 2200 ml Output Urine Total 2875 ml # Bowel Movements 1 General: Other (intubated) HEENT: Atraumatic, PERRLA Neck: Supple Lungs: Normal Air Movement Heart: Normal S1, Normal S2, Other (tachycardia) Abdomen: Normal Bowel Sounds, Other (colostomy that) Extremities: No Clubbing, No Cyanosis, Other (mild edema) Skin: No Rashes Neuro: Other (intubated) Psych/Mental Status: Other (intubated) Results Lab Laboratory Tests 03/07/20 02:34 A/P-Cardiology Admission Diagnosis Acute respiratory failure Recent PE Left popliteal DVT Tachycardia Assessment/Plan Acute respiratory failure, ventilatory dependent, being weaned daily, managed by primary care team Patient has been having episode of shortness of breath and recurrent respiratory failure since December 2019, multiple hospitalization requiring BiPAP, deteriorated recently and transferred to our hospital due to lack of beds in [facility]. Congestive heart failure, acute left ventricular systolic dysfunction, ejection fraction 10 percent, unknown etiology, nonischemic cardiomyopathy, started on low-dose beta blockers IV, continue to monitor next Cardiac catheterization carried out on March 06, 2020 showing mild coronary artery diseaseobstructive disease, elevated left ventricular end-diastolic pressure History of DVT, patient has been maintained on anticoagulation, reported by his that he had it since 2018 History of colostomy done in 2018. Acute renal insufficiency, given additional Bumex today, continue to monitor renal function Elevated liver enzymes, probably secondary to poor cardiac output. Continue to monitor Clinical Quality Measures DVT/VTE Risk/Contraindication: Risk Factor Score Per Nursin RFS Level Per Nursing on Admit: 4+=Very High LUKAS PIMENTEL MD Mar 07, 2020 11:12
--- NOTE | 2020-03-07 11:31 | Progress Note - Hospitalist ---
Subjective HPI/CC On Admission Date Seen by Provider: Mar 07, 2020 Time Seen by Provider: 11:20 CC: Respiratory failure requiring urgent intubation HPI: This is a 69yoWM patient transferred from [facility] early this am who presented with dyspnea and hypoxia. PE dx 03/02/20 placed on OAC Eliquis and DC home and given steroids and Lopressor for tachycardia but then returned with increased dyspnea requiring ER visit then move to [facility] ICU and patient was decompensating so Dr Phillips ordered intubation. More records will be reviewed. Dr Shelton and I conferred at 1150am. COVID swab pending but rapid was negative. Subjective/Events-last exam Still intubated SIMV 21% Labs ok Bumex just given Focused Exam Lactate Level Objective Exam Vital Signs Vital Signs Date Time Temp Pulse Resp B/P (MAP) Pulse Ox O2 Delivery O2 Flow Rate FiO2 03/07/20 17:15 36.7 129 21 129/79 99 Nasal Cannula 2.00 03/07/20 12:34 21 Capillary Refill : Less Than 3 Seconds General Appearance: No Apparent Distress, WD/WN, Chronically ill, Other (intubated) Respiratory: Lungs Clear Cardiovascular: Regular Rate, Rhythm Results/Procedures Lab Laboratory Tests 03/07/20 02:34 Patient resulted labs reviewed. Assessment/Plan Assessment and Plan Assess & Plan/Chief Complaint Assessment: Acute respiratory failure requiring emergent intubation Recent acute PE diagnosed 03/02/20 placed on Eliquis COPD h/o smoker LORETTA HTN HLP Elevated BNP Bilateral DVT Elevated troponin Plan: ICU consultation Anticoagulation Vent management Supportive care Empiric abx COVID swab neg ARF management Consult Dr Rodriguez 03/06/20: s/p cardiac cath revealing non-ischemic cardiomyopathy Extubate? 03/07/20: Extubate? Monitor closely Clinical Quality Measures DVT/VTE Risk/Contraindication: Risk Factor Score Per Nursin RFS Level Per Nursing on Admit: 4+=Very High SELMA WILDE DO Mar 07, 2020 11:31
[2020-03-07] MEDS: ENOXAPARIN 100 MG/1 ML (LOVENOX) SYR SC SCH (14:36)
--- NOTE | 2020-03-07 15:36 | NUR ---
AT THIS TIME, PATIENT AGITATED, PULLED CENTRAL LINE OUT. THIS RN HELD PRESSURE UNTIL ABLE TO APPLY DRESSING. TIP INTACT, CENTRAL LINE ON BED. THIS RN CALLED PATIENTS , ALLOWED PATIENT TO TALK WITH . PATIENT CALM FOR APPROX 5 MINUTES, POST PHONE CALL, ET BEGAN PULLING AT LINES AGAIN. THIS RN CONTACTED EICU REGARDING PT AGITATION ET PRECEDEX NOT WORKING, NEW ORDERS RECEIVED. SEE EMAR.
[2020-03-07] MEDS ORDERED: HALOPERIDOL 5 MG/ML (HALDOL) VIAL IM NR (15:45)
[2020-03-07] MEDS ORDERED: LORazepam INJ 2 MG/ML (ATIVAN) VIAL ONE (16:23)
[2020-03-07] MEDS: LORazepam INJ 2 MG/ML (ATIVAN) VIAL IM PRN (16:35)
[2020-03-07] MEDS ORDERED: LORazepam INJ 2 MG/ML (ATIVAN) VIAL IVP ONE (16:45)
[2020-03-08] MEDS: IPRATROPIUM INHALER (ATROVENT) 12.9 GM INH SCH ×6 (01:51→21:53)
[2020-03-08] MEDS: RT-ALBUTEROL INHALER HFA (VENTOLIN HFA) 18 GM IH SCH ×6 (01:51→21:52)
[2020-03-08] MEDS: DexMEDEtomidine PRE MIX 100 ML IV SCH ×5 (02:35→19:33)
[2020-03-08] MEDS: PIPERACILLIN/TAZOBACTAM (BULK) 4.5 GM in NS (IVPB) 100 ML IV SCH ×3 (02:35→18:01)
[2020-03-08] MEDS: LACTATED RINGERS 1,000 ML IV SCH ×2 (02:36→10:30)
[2020-03-08] MEDS: LORazepam INJ 2 MG/ML (ATIVAN) VIAL IM PRN ×2 (03:44→15:48)
[2020-03-08 04:37] LABS: BASOPHILS % (AUTO) 0 % (0-10); EOSINOPHILS # (AUTO) 0.2 10^3/uL (0.0-0.3); EOSINOPHILS % (AUTO) 2 % (0-10); HEMATOCRIT 38 % (40-54); LYMPHOCYTES # (AUTO) 0.9 10^3/uL (1.0-4.0); LYMPHOCYTES % (AUTO) 8 % (12-44); MEAN CORPUSCULAR HEMOGLOBIN 30 pg (25-34); MEAN CORPUSCULAR HGB CONC 31 g/dL (32-36); MEAN CORPUSCULAR VOLUME 97 fL (80-99); MEAN PLATELET VOLUME 11.3 fL (9.0-12.2); MONOCYTES # (AUTO) 0.5 10^3/uL (0.0-1.0); MONOCYTES % (AUTO) 4 % (0-12); NEUTROPHILS # (AUTO) 9.2 10^3/uL (1.8-7.8); NEUTROPHILS % (AUTO) 85 % (42-75); PLATELET COUNT 147 10^3/uL (130-400); WHITE BLOOD COUNT 10.8 10^3/uL (4.3-11.0)
[2020-03-08 04:47] LABS: POTASSIUM 3.6 MMOL/L (3.6-5.0)
[2020-03-08 04:53] LABS: CREATININE SERUM 1.76 MG/DL (0.60-1.30); PHOSPHORUS 3.8 MG/DL (2.3-4.7)
[2020-03-08 04:55] LABS: MAGNESIUM 1.7 MG/DL (1.6-2.4)
[2020-03-08] MEDS: POTASSIUM CL 10MEQ/50ML IVPB 50 ML IV SCH ×3 (05:27→08:54)
[2020-03-08] MEDS: MAGNESIUM 1 GM/100 ML IVPB 100 ML IV SCH ×3 (05:27→06:33)
[2020-03-08] MEDS: KCL 20 MEQ TAB (K-DUR) PO SCH (05:28)
[2020-03-08] MEDS: meTOprolol 5 MG/5 ML (LOPRESSOR) VIAL IV SCH ×3 (05:37→18:01)
[2020-03-08] MEDS: ADVAIR HFA 115/21 MCG INHALER 8 GM IH SCH ×2 (06:22→17:48)
--- NOTE | 2020-03-08 06:57 | Progress Note - Hospitalist ---
Subjective HPI/CC On Admission Date Seen by Provider: Mar 08, 2020 Time Seen by Provider: 12:30 CC: Respiratory failure requiring urgent intubation HPI: This is a 69yoWM patient transferred from [facility] early this am who presented with dyspnea and hypoxia. PE dx 03/02/20 placed on OAC Eliquis and DC home and given steroids and Lopressor for tachycardia but then returned with increased dyspnea requiring ER visit then move to [facility] ICU and patient was decompensating so Dr Phillips ordered intubation. More records will be reviewed. Dr Shelton and I conferred at 1150am. COVID swab pending but rapid was negative. Subjective/Events-last exam Patient was extubated and restless Patient worsened through the day and ripped out all of his lines and required re-intubation due to out of control ad aggressive behavior Labs remain stable Objective Exam Vital Signs Vital Signs Date Time Temp Pulse Resp B/P (MAP) Pulse Ox O2 Delivery O2 Flow Rate FiO2 03/08/20 19:33 37.3 123 16 129/94 99 Mechanical Ventilator 90.00 03/08/20 16:37 100 Capillary Refill : Less Than 3 Seconds General Appearance: No Apparent Distress, WD/WN, Chronically ill Respiratory: Chest Non Tender, Lungs Clear, Normal Breath Sounds, No Accessory Muscle Use, No Respiratory Distress Cardiovascular: No Edema, No Gallop, No JVD, No Murmur, Normal Peripheral Pulses, Tachycardia Results/Procedures Lab Laboratory Tests 03/08/20 04:25 Patient resulted labs reviewed. Assessment/Plan Assessment and Plan Assess & Plan/Chief Complaint Assessment: Acute respiratory failure requiring emergent intubation Recent acute PE diagnosed 03/02/20 placed on Eliquis COPD h/o smoker LORETTA HTN HLP Elevated BNP Bilateral DVT Elevated troponin Plan: ICU consultation Anticoagulation Vent management Supportive care Empiric abx COVID swab neg ARF management Consult Dr Rodriguez 03/06/20: s/p cardiac cath revealing non-ischemic cardiomyopathy Extubate? 03/07/20: Extubate? Monitor closely 03/08/20: Extubated but then reintubated Clinical Quality Measures DVT/VTE Risk/Contraindication: Risk Factor Score Per Nursin RFS Level Per Nursing on Admit: 4+=Very High SELMA WILDE DO Mar 08, 2020 06:57
[2020-03-08] MEDS: PANTOPRAZOLE 40 MG (PROTONIX) VIAL IV SCH (07:35)
[2020-03-08 10:47] VITALS: BP 140/106
[2020-03-08 10:50] LABS: ABG BASE EXCESS -3.8 MMOL/L (-2.5-2.5); ABG OXYGEN SATURATION 93 % (94-100); ABG PCO2 36 MMHG (35-45); ABG PH 7.37 (7.37-7.43); ABG PO2 66 MMHG (79-93)
[2020-03-08 10:51] LABS: ALLENS TEST YES-POS; INSPIRED O2 5 L; PATIENT TEMP 35.6; VENTILATOR NO
--- NOTE | 2020-03-08 11:00 | Cardiology Progress Note ---
Subjective Date Seen by Provider: Mar 08, 2020 Time Seen by Provider: 10:57 Subjective/Events-last exam Patient is lethargic, not following commands, not opening his eyes Review of Systems General: Other (unable to provide review of systems) Objective-Cardiology Exam Last Set of Vital Signs Vital Signs 03/07/20 03/08/20 03/08/20 03/08/20 03/08/20 16:00 07:28 08:00 08:51 10:47 Temp 37.6 Pulse 125 Resp 17 B/P (MAP) 126/109 Pulse Ox 96 O2 Delivery Nasal Cannula O2 Flow Rate 40.00 FiO2 21 Capillary Refill : Less Than 3 Seconds I&O l Intake and Output 03/08/20 00:00 Intake Total 0 ml Output Total 3700 ml Balance -3700 ml Intake Oral 0 ml Output Urine Total 3700 ml General: Other (not following commands, not opening his eyes) HEENT: Atraumatic Neck: Supple Lungs: Normal Air Movement Heart: Normal S1, Normal S2, Other (tachycardia) Abdomen: Normal Bowel Sounds, Other (colostomy Bag) Extremities: No Clubbing, No Cyanosis, Other (mild edema) Skin: No Rashes Neuro: Other (not opening his eyes or following commands) Psych/Mental Status: Other (not opening his eyes or following commands) Results Lab Laboratory Tests 03/08/20 04:25 A/P-Cardiology Admission Diagnosis Acute respiratory failure Recent PE Left popliteal DVT Tachycardia Assessment/Plan Status post acute respiratory failure, extubated, still lethargic and hypoxemic, not following commands or opening his eyes, followed by primary care team Patient has been having episode of shortness of breath and recurrent respiratory failure since December 2019, multiple hospitalization requiring BiPAP, deteriorated recently and transferred to our hospital due to lack of beds in [facility]. Congestive heart failure, acute left ventricular systolic dysfunction, ejection fraction 10 percent, unknown etiology, nonischemic cardiomyopathy, started on low-dose beta blockers IV, continue to monitor Cardiac catheterization carried out on March 06, 2020 showing mild coronary artery disease non-obstructive disease, elevated left ventricular end-diastolic pressure History of DVT, patient has been maintained on anticoagulation, reported by his that he had it since 2018 History of colostomy done in 2018. Acute renal insufficiency, I will give additional Bumex 0.5 mg IV today, continue to monitor renal function closely Elevated liver enzymes, probably secondary to poor cardiac output. Continue to monitor Clinical Quality Measures DVT/VTE Risk/Contraindication: Risk Factor Score Per Nursin RFS Level Per Nursing on Admit: 4+=Very High LUKAS PIMENTEL MD Mar 08, 2020 11:00
[2020-03-08] MEDS: ENOXAPARIN 100 MG/1 ML (LOVENOX) SYR SC SCH (11:57)
[2020-03-08 14:12] VITALS: BP 134/95
--- NOTE | 2020-03-08 15:15 | NUR ---
AT THIS TIME PATIENT AGITATED, THIS RN ENTERED ROOM. PATIENT BEGAN HOLLARING, THIS RN YELLED FOR HELP ET PCT ENTERED ROOM. PATIENT IV TO L CHEST IS NO LONGER GOOD. THIS RN ATTEMPTED TO REDIRECT PATIENT WITH NO SUCCESS. PATIENT ATTEMPTED TO PUNCH PCT IN FACE, PCT ABLE TO MOVE OUT OF WAY, BUT PATIENT MADE CONTACT WITH PCT ARM. PATIENT THEN ATTEMPTED TO PUNCH THIS RN IN FACE, BUT WAS UNSUCCESSFUL. PATIENT GIVEN PRN MEDICATION FOR AGITATION. THIS RN ATTEMPTED TO CALL PT SPOUSE FOR PT TO SPEAK WITH SPOUSE, PATIENT SPOKE WITH SPOUSE, NO SUCCESS IN REDIRECTING PT. PATIENT IS NOT ORIENTED, NOT APPROPRIATELY BREATHING ET NOT KEEPING OXYGEN ON. UNABLE TO GET O2 SAT ON PAITNET PATIENT CONTINUES TO BE AGITATED WITH STAFF. NOTIFIED DR. WILDE AT THIS TIME OF PTS BEHAVIORS ET CONDITION.
[2020-03-08] MEDS ORDERED: proPOfol 200 MG/20 ML (DIPRIVAN) VIAL IV ONE (16:06)
[2020-03-08] MEDS ORDERED: PROPOFOL DRIP (ICU) 100 ML IV ONE (16:06)
[2020-03-08] MEDS ORDERED: NS IV 1000 ML 1,000 ML ONE (16:06)
[2020-03-08 16:37] VITALS: BP 118/54
[2020-03-08] MEDS ORDERED: ETOMIDATE IV SOLN 20 MG/10 ML VIAL IV ONE (16:44)
[2020-03-08] MEDS ORDERED: ROCURONIUM 10 MG/ML 5 ML SYRINGE IV ONE (16:44)
--- NOTE | 2020-03-08 17:43 | Diagnostic Imaging Report ---
INDICATION: Central line placement, intubated. COMPARISON: 03/07/2020 at 9:55 a.m. EXAMINATION: Single view of the chest was obtained. FINDINGS: ET tube and NG tube are in stable position. There is new right IJ catheter overlying the right apex. There is no pneumothorax. Increasing infiltrates in the upper lung zones, bilaterally. There is a small effusion in the right base. Heart remains enlarged. IMPRESSION: 1. Right IJ catheter overlying the right apex. No pneumothorax identified. Remaining tubes and lines are unchanged. 2. Increasing infiltrates in the upper lung zones. Dictated by: Dictated on workstation # [id number]
[2020-03-08 17:49] VITALS: BP 126/89
[2020-03-08] MEDS: PROPOFOL DRIP (ICU) 100 ML IV SCH ×2 (17:54→22:01)
--- NOTE | 2020-03-08 18:33 | NUR ---
TIME LINE NOTED 1620: DR. JULIAN ET STUDENT IN PT ROOM 1624: ETOMIDATE 20 1626: ETOMIDATE 20 1627: ROCURONIUM 50 1630: PATIENT SUCCESSFULLY INTUBATED 8.0 TUBE, 27 END TIDAL CO2 PRESENT, 24 AT GUMS. 1645: CENTRAL LINE PLACE BY DR. JULIAN ET STUDENT
--- NOTE | 2020-03-08 18:38 | Procedure/Intervention Note ---
Procedures/Interventions Lumen: triple Central Line Procedure: betadine prep (chlorhexidine prep), sterile drapes applied, sterile dressing applied Position: internal jugular (R) Anesthesia: Lidocaine Volume Anesthetic (ccs): 3 Complications: none Post Position: sutured, good blood return, position confirmed w/ CXR Risks, benefits and alternatives were discussed with the patient and emergency consent was obtained for the procedure. He was positioned in the usual format and using the usual sterile garment and drapes the patient was dressed out. The skin was thoroughly cleaned with the supplied chlorhexidine prep. After the prep and dried a sterile drape was placed. The 15 cm 7 Nauruan triple-lumen catheter was flushed with sterile saline. We used ultrasound guidance to pass the introducer needle into the right internal jugular without difficulty. A guidewire was placed easily without difficulty. No ectopy was seen on the monitor. The supplied 11 blade scalpel was used to make a 2 mm incision at the inferior portion of the introducer needle. The introducer needle was replaced with the dilator. The dilator was taken out and the patient had the central lumen of the triple lumen catheter threaded over the guidewire and placed at 15 cm. The guidewire was removed and the triple-lumen catheter was stitched in place using the supplied braided stitch at 2 different points. The catheter withdrew blood and flushed easily. A sterile dressing was placed over the catheter. The patient tolerated the procedure well. A chest x-ray was obtained that demonstrated no pneumothorax and a new interval central catheter over the shadow of the right internal jugular down the superior vena cava and terminating just proximal to the right atria. Reason for Intubation: protect the airway Date of ETT Placement: Mar 08, 2020 Time of ETT Placement: 1630 Intubation Method: orotracheal Tube Size: 8.00 Medications: Etomidate (40 mg), Rocuronium (50) Positive End Tide CO2: Yes Breath Sounds after Intubation: bilateral-equal Intubation Complications: no complications Post Intubation Xray: Yes successful ablation couple centimeters above the paola without PTX ANEUDY JULIAN Mar 08, 2020 18:38
[2020-03-08 21:53] VITALS: BP 132/100
[2020-03-08 21:55] VITALS: BP 132/100
[2020-03-09] VITALS (7 sets, daily range): BP systolic 124–148; BP diastolic 88–107
[2020-03-09] MEDS: DexMEDEtomidine PRE MIX 100 ML IV SCH ×6 (00:16→21:30)
[2020-03-09] MEDS: LACTATED RINGERS 1,000 ML IV SCH ×3 (00:17→03:55)
[2020-03-09] MEDS: meTOprolol 5 MG/5 ML (LOPRESSOR) VIAL IV SCH ×7 (00:25→23:40)
[2020-03-09] MEDS: RT-ALBUTEROL INHALER HFA (VENTOLIN HFA) 18 GM IH SCH ×6 (01:40→21:25)
[2020-03-09] MEDS: IPRATROPIUM INHALER (ATROVENT) 12.9 GM INH SCH ×6 (01:41→21:25)
[2020-03-09] MEDS: PIPERACILLIN/TAZOBACTAM (BULK) 4.5 GM in NS (IVPB) 100 ML IV SCH (02:06)
[2020-03-09] MEDS: PROPOFOL DRIP (ICU) 100 ML IV SCH ×5 (02:07→21:30)
[2020-03-09 02:31] LABS: ABG BASE EXCESS -2.8 MMOL/L (-2.5-2.5); ABG OXYGEN SATURATION 100 % (94-100); ABG PCO2 44 MMHG (35-45); ABG PO2 179 MMHG (79-93); ABG TCO2 23.7 MMOL/L (21.0-31.0); BASOPHILS % (AUTO) 0 % (0-10); EOSINOPHILS # (AUTO) 0.3 10^3/uL (0.0-0.3); EOSINOPHILS % (AUTO) 4 % (0-10); HEMATOCRIT 33 % (40-54); HEMOGLOBIN 10.4 g/dL (13.3-17.7); LYMPHOCYTES # (AUTO) 2.3 10^3/uL (1.0-4.0); LYMPHOCYTES % (AUTO) 27 % (12-44); MEAN CORPUSCULAR HEMOGLOBIN 31 pg (25-34); MEAN CORPUSCULAR HGB CONC 32 g/dL (32-36); MEAN CORPUSCULAR VOLUME 97 fL (80-99); MEAN PLATELET VOLUME 11.4 fL (9.0-12.2); MONOCYTES # (AUTO) 0.4 10^3/uL (0.0-1.0); MONOCYTES % (AUTO) 4 % (0-12); NEUTROPHILS # (AUTO) 5.4 10^3/uL (1.8-7.8); NEUTROPHILS % (AUTO) 64 % (42-75); PLATELET COUNT 119 10^3/uL (130-400); WHITE BLOOD COUNT 8.5 10^3/uL (4.3-11.0)
[2020-03-09 02:32] LABS: ALLENS TEST POSITIVE; INSPIRED O2 80; PATIENT TEMP 36.7; VENTILATOR YES
[2020-03-09 02:34] LABS: ABG PH 7.33 (7.37-7.43)
[2020-03-09 02:39] LABS: POTASSIUM 3.5 MMOL/L (3.6-5.0)
[2020-03-09 02:40] LABS: CALCIUM 8.4 MG/DL (8.5-10.1)
[2020-03-09 02:44] LABS: PHOSPHORUS 3.3 MG/DL (2.3-4.7)
[2020-03-09 02:45] LABS: CREATININE SERUM 1.45 MG/DL (0.60-1.30)
[2020-03-09 02:47] LABS: MAGNESIUM 1.9 MG/DL (1.6-2.4)
[2020-03-09] MEDS: POTASSIUM CL 10MEQ/50ML IVPB 50 ML IV SCH ×3 (04:19→05:04)
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
[2020-03-09 04:59] LABS: ALBUMIN 2.7 GM/DL (3.2-4.5); POTASSIUM 3.6 MMOL/L (3.6-5.0)
[2020-03-09 05:00] LABS: CALCIUM 8.3 MG/DL (8.5-10.1)
[2020-03-09 05:01] LABS: TOTAL PROTEIN 4.9 GM/DL (6.4-8.2)
[2020-03-09 05:03] LABS: BILIRUBIN,TOTAL 0.6 MG/DL (0.1-1.0)
[2020-03-09] MEDS: MAGNESIUM 1 GM/100 ML IVPB 100 ML IV SCH (05:04)
[2020-03-09 05:05] LABS: CREATININE SERUM 1.47 MG/DL (0.60-1.30)
[2020-03-09] MEDS: KCL 20 MEQ TAB (K-DUR) PO SCH (05:05)
[2020-03-09] MEDS ORDERED: BUMETANIDE 1 MG/4 ML (BUMEX) VIAL IV ONE (06:15)
[2020-03-09] MEDS: ADVAIR HFA 115/21 MCG INHALER 8 GM IH SCH ×2 (06:16→18:28)
--- NOTE | 2020-03-09 07:57 | Diagnostic Imaging Report ---
INDICATION: Shortness of breath Comparison made with prior examination of 03/08/2020. FINDINGS: There is cardiomegaly and moderate congestive failure. There is a right pleural effusion. No pneumothorax. Lines and tubes are in satisfactory position. IMPRESSION: Cardiomegaly and moderate congestive failure with a right pleural effusion. Dictated by: Dictated on workstation # [id number]
--- NOTE | 2020-03-09 08:24 | Physical Therapy Progress Note ---
Therapy Progress Note Patient reintubated. PT to continue to follow. THEO WARD PT Mar 09, 2020 08:24
[2020-03-09] MEDS: BUMETANIDE 1 MG/4 ML (BUMEX) VIAL IV SCH (08:48)
[2020-03-09] MEDS: PANTOPRAZOLE 40 MG (PROTONIX) VIAL IV SCH (09:26)
--- NOTE | 2020-03-09 09:34 | Progress Note - Hospitalist ---
Subjective HPI/CC On Admission Date Seen by Provider: Mar 09, 2020 Time Seen by Provider: 09:00 CC: Respiratory failure requiring urgent intubation HPI: This is a 69yoWM patient transferred from [facility] early this am who presented with dyspnea and hypoxia. PE dx 03/02/20 placed on OAC Eliquis and DC home and given steroids and Lopressor for tachycardia but then returned with increased dyspnea requiring ER visit then move to [facility] ICU and patient was decompensating so Dr Phillips ordered intubation. More records will be reviewed. Dr Shelton and I conferred at 1150am. COVID swab pending but rapid was negative. Subjective/Events-last exam Pt remains sedated ABG is 7.30/44/179 Re-intubated after extubated yesterday WBC 8.5 Hgb 10.4 Objective Exam Vital Signs Vital Signs Date Time Temp Pulse Resp B/P (MAP) Pulse Ox O2 Delivery O2 Flow Rate FiO2 03/10/20 04:00 36.0 125 142/105 94 Mechanical Ventilator 30.00 03/10/20 02:07 16 40 Capillary Refill : Less Than 3 Seconds General Appearance: No Apparent Distress, WD/WN, Chronically ill HEENT: PERRL/EOMI, Pharynx Normal, Moist Mucous Membranes, Other (ET in place) Neck: Normal Inspection, Non Tender, Supple, Carotid Bruit Respiratory: Chest Non Tender, Lungs Clear, No Accessory Muscle Use, No Respiratory Distress, Decreased Breath Sounds Cardiovascular: Regular Rate, Rhythm, No Edema, No Gallop, No JVD, No Murmur, Normal Peripheral Pulses, Tachycardia Gastrointestinal: Normal Bowel Sounds, No Organomegaly, No Pulsatile Mass, Soft Back: Normal Inspection, No Vertebral Tenderness Extremity: Normal Capillary Refill, Normal Inspection, Non Tender, No Calf Tenderness, No Pedal Edema Skin: Normal Color, Warm/Dry Lymphatic: No Adenopathy Results/Procedures Lab Laboratory Tests 03/10/20 02:28 Patient resulted labs reviewed. Assessment/Plan Assessment and Plan Assess & Plan/Chief Complaint Assessment: Acute respiratory failure requiring emergent intubation Recent acute PE diagnosed 03/02/20 placed on Eliquis COPD h/o smoker LORETTA HTN HLP Elevated BNP Bilateral DVT Elevated troponin Plan: ICU consultation Anticoagulation Vent management Supportive care Empiric abx COVID swab neg ARF management Consult Dr Rodriguez 03/06/20: s/p cardiac cath revealing non-ischemic cardiomyopathy Extubate? 03/07/20: Extubate? Monitor closely 03/08/20: Extubated but then reintubated 03/09/20: Sedated Maintain intubation Appreciate critical care Clinical Quality Measures DVT/VTE Risk/Contraindication: Risk Factor Score Per Nursin RFS Level Per Nursing on Admit: 4+=Very High SELMA WILDE DO Mar 09, 2020 09:34
--- NOTE | 2020-03-09 10:35 | Progress Note - Cardiology ---
Cardiology SOAP Progress Note Subjective: Intubated and sedated Objective: I&O/Vital Signs 03/09/20 03/09/20 03/09/20 03/09/20 00:00 00:00 00:16 01:00 Temp 36.8 36.8 Pulse 123 123 123 Resp 16 B/P (MAP) 130/98 137/97 Pulse Ox 99 99 99 O2 Delivery Mechanical Ventilator Mechanical Ventilator Mechanical Ventilator O2 Flow Rate 80.00 80.00 FiO2 80 03/09/20 03/09/20 03/09/20 03/09/20 01:00 01:41 01:42 02:00 Temp 36.8 36.8 Pulse 123 123 123 123 Resp 16 16 B/P (MAP) 127/96 127/96 Pulse Ox 100 100 100 99 O2 Delivery Mechanical Ventilator Mechanical Ventilator O2 Flow Rate 80.00 70.00 FiO2 70 70 03/09/20 03/09/20 03/09/20 03/09/20 02:07 03:00 04:00 04:00 Temp 36.7 36.6 Pulse 123 123 123 B/P (MAP) 127/96 131/97 133/101 Pulse Ox 99 99 99 O2 Delivery Mechanical Ventilator Mechanical Ventilator Mechanical Ventilator O2 Flow Rate 70.00 70.00 FiO2 80 03/09/20 03/09/20 03/09/20 03/09/20 04:12 05:00 06:00 06:15 Temp 36.6 36.6 36.6 36.6 Pulse 123 124 124 124 Resp 16 B/P (MAP) 133/101 128/92 120/93 124/91 Pulse Ox 100 100 99 O2 Delivery Mechanical Ventilator Mechanical Ventilator Mechanical Ventilator Mechanical Ventilator O2 Flow Rate 70.00 70.00 70.00 40.00 03/09/20 03/09/20 03/09/20 03/09/20 06:15 06:17 06:35 06:41 Pulse 124 124 124 Resp 16 Pulse Ox 99 94 FiO2 55 40 40 03/09/20 03/09/20 03/09/20 03/09/20 07:00 07:33 08:00 09:31 Temp 36.5 36.4 Pulse 123 123 123 Resp 16 B/P (MAP) /94 130/97 123/94 127/94 Pulse Ox 92 93 94 O2 Delivery Mechanical Ventilator Mechanical Ventilator Mechanical Ventilator O2 Flow Rate 40.00 40.00 FiO2 40 03/09/20 09:54 Pulse 124 Resp 16 Pulse Ox 94 FiO2 40 03/09/20 00:00 Intake Total 200 ml Output Total 650 ml Balance -450 ml Constitutional: other (intubated and sedated) Respiratory: chest expansion is symmetric, chest is bilaterally symmetric, crackles, rhonchi (scattered) Cardiovascular: regular rate-rhythm, tachycardia, systolic murmur Gastrointestional: soft, audible bowel sounds, other (LLQ colostomy) Extremities: other (dry, flaky, ruddish LE bilat), no lower extremity edema bilateral Neurologic/Psychiatric: other (sedated) Skin: other (see above) Results/Procedures: Labs Laboratory Tests 03/09/20 02:22: White Blood Count 8.5, Red Blood Count 3.39L, Hemoglobin 10.4L, Hematocrit 33L, Mean Corpuscular Volume 97, Mean Corpuscular Hemoglobin 31, Mean Corpuscular Hemoglobin Concent 32, Red Cell Distribution Width 16.0H, Platelet Count 119L, Mean Platelet Volume 11.4, Immature Granulocyte % (Auto) 0, Neutrophils (%) (Auto) 64, Lymphocytes (%) (Auto) 27, Monocytes (%) (Auto) 4, Eosinophils (%) (Auto) 4, Basophils (%) (Auto) 0, Neutrophils # (Auto) 5.4, Lymphocytes # (Auto) 2.3, Monocytes # (Auto) 0.4, Eosinophils # (Auto) 0.3, Basophils # (Auto) 0.0, Immature Granulocyte # (Auto) 0.0, Blood Gas Puncture Site RIGHT RADIAL, Blood Gas Patient Temperature 36.7, Arterial Blood pH 7.33*L, Arterial Blood Partial Pressure CO2 44, Arterial Blood Partial Pressure O2 179H, Arterial Blood HCO3 22L, Arterial Blood Total CO2 23.7, Arterial Blood Oxygen Saturation 100, Arter ial Blood Base Excess -2.8L, Gregorio Test POSITIVE, Blood Gas Ventilator Setting YES, Blood Gas Inspired Oxygen 80, Sodium Level 144, Potassium Level 3.6, Chloride Level 113H, Carbon Dioxide Level 22, Anion Gap 9, Blood Urea Nitrogen 34H, Creatinine 1.47H, Estimat Glomerular Filtration Rate 47, BUN/Creatinine Ra meri 23, Glucose Level 113H, Calcium Level 8.3L, Corrected Calcium 9.3, Phosphorus Level 3.3, Magnesium Level 1.9, Total Bilirubin 0.6, Aspartate Amino Transf (AST/SGOT) 30, Alanine Aminotransferase (ALT/SGPT) 64H, Alkaline Phosphatase 23L, Total Protein 4.9L, Albumin 2.7L 03/09/20 04:54: Ammonia 37H 03/09/20 11:19: Glucometer 123H Microbiology 03/04/20 Blood Culture - Preliminary, Resulted No growth 03/04/20 Influenza Types A,B Antigen (ANGEL) - Final, Complete A/P: Assessment: Status post acute respiratory failure, intubated and sedated Acute on chronic respiratory failure since December 2019, multiple hospitalization requiring BiPAP Congestive heart failure, acute left ventricular systolic dysfunction Nonischemic cardiomyopathy Echocardiogram Mar 05, [address] Rodriguez showed LVEF 10-15%, mild to mod MR, PASP 45-50mmHg Cardiac catheterization carried out on March 06, 2020 showing mild coronary artery disease non-obstructive disease, elevated left ventricular end-diastolic pressure History of DVT, patient has been maintained on anticoagulation, reported by his that he had it since 2018 History of colostomy done in 2018. Acute renal insufficiency Pulmonary hypertension Plan: Management of respiratory failure per pulmonary services NICM with acute on chronic systolic CHF Continue diuretics Continue BB Add low dose CARLI Monitor lab closely Replace electrolytes as indicated CARINA VALLADARES Mar 09, 2020 10:35
--- NOTE | 2020-03-09 10:37 | NUR ---
INCREASE ENOXAPARIN BACK TO 100MG SQ Q12H DUE TO CHANGE IN WEIGHT AND IMPROVEMENT IN SCR/RENAL FXN (CRCL GREATER THAN 30ML/MIN)
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
--- NOTE | 2020-03-09 11:57 | NUR ---
PALLIATIVE CARE RN in to see patient. He is intubated at the time of assessment. Edematous in lower extremity B/L and hands are cool to the touch. Attempted x 2 to call and speak with patient's Kathy. No answer but will continue to make attempts to get on touch. Will continue to follow and off assist as able.
[2020-03-09] MEDS: ENOXAPARIN 100 MG/1 ML (LOVENOX) SYR SC SCH ×2 (12:04→23:40)
--- NOTE | 2020-03-09 14:33 | Progress Note - Cardiology ---
Cardiology SOAP Progress Note Subjective: Unable to communicate because on mech vent and sedated Objective: I&O/Vital Signs 03/09/20 03/09/20 03/09/20 03/09/20 03:00 04:00 04:00 04:12 Temp 36.7 36.6 36.6 Pulse 123 123 123 Resp 16 B/P (MAP) 131/97 133/101 133/101 Pulse Ox 99 99 99 O2 Delivery Mechanical Ventilator Mechanical Ventilator Mechanical Ventilator Mechanical Ventilator O2 Flow Rate 70.00 70.00 70.00 FiO2 80 03/09/20 03/09/20 03/09/20 03/09/20 05:00 06:00 06:15 06:15 Temp 36.6 36.6 36.6 Pulse 124 124 124 124 Resp 16 B/P (MAP) 128/92 120/93 124/91 Pulse Ox 100 100 99 99 O2 Delivery Mechanical Ventilator Mechanical Ventilator Mechanical Ventilator O2 Flow Rate 70.00 70.00 40.00 FiO2 55 03/09/20 03/09/20 03/09/20 03/09/20 06:17 06:35 06:41 07:00 Temp 36.5 Pulse 124 124 123 B/P (MAP) /94 127/94 Pulse Ox 94 92 O2 Delivery Mechanical Ventilator O2 Flow Rate 40.00 FiO2 40 40 03/09/20 03/09/20 03/09/20 03/09/20 07:33 08:00 08:00 08:00 Temp 36.4 Pulse 123 124 B/P (MAP) 130/97 127/95 Pulse Ox 93 93 O2 Delivery Mechanical Ventilator FiO2 40 03/09/20 03/09/20 03/09/20 03/09/20 08:15 08:30 08:45 09:00 Pulse 124 124 B/P (MAP) 125/95 128/95 125/96 126/93 Pulse Ox 96 95 03/09/20 03/09/20 03/09/20 03/09/20 09:15 09:30 09:31 09:45 Temp 36.4 Pulse 123 123 123 123 Resp 16 B/P (MAP) 125/93 123/94 123/94 124/88 Pulse Ox 94 94 94 93 O2 Delivery Mechanical Ventilator O2 Flow Rate 40.00 03/09/20 03/09/20 03/09/20 03/09/20 09:54 10:00 10:15 10:30 Pulse 124 124 124 124 Resp 16 B/P (MAP) 127/94 130/95 134/95 Pulse Ox 94 95 95 95 FiO2 40 03/09/20 03/09/20 03/09/20 03/09/20 10:45 11:00 12:00 12:00 Temp 36.4 Pulse 124 124 125 B/P (MAP) 133/92 131/97 134/99 Pulse Ox 95 95 97 O2 Delivery Mechanical Ventilator Mechanical Ventilator O2 Flow Rate 40.00 40.00 03/09/20 03/09/20 03/09/20 12:00 12:31 12:32 Pulse 124 124 Resp 16 B/P (MAP) 132/99 132/99 Pulse Ox 96 O2 Delivery Mechanical Ventilator FiO2 40 03/09/20 00:00 Intake Total 200 ml Output Total 650 ml Balance -450 ml Constitutional: other (intubated and sedated) Respiratory: chest expansion is symmetric, chest is bilaterally symmetric, crackles, rhonchi (scattered) Cardiovascular: regular rate-rhythm, tachycardia, systolic murmur Gastrointestional: soft, audible bowel sounds, other (LLQ colostomy) Extremities: other (dry, flaky, ruddish LE bilat), no lower extremity edema bilateral Neurologic/Psychiatric: other (sedated) Skin: other (see above) Results/Procedures: Labs Laboratory Tests 03/09/20 02:22: White Blood Count 8.5, Red Blood Count 3.39L, Hemoglobin 10.4L, Hematocrit 33L, Mean Corpuscular Volume 97, Mean Corpuscular Hemoglobin 31, Mean Corpuscular Hemoglobin Concent 32, Red Cell Distribution Width 16.0H, Platelet Count 119L, Mean Platelet Volume 11.4, Immature Granulocyte % (Auto) 0, Neutrophils (%) (Auto) 64, Lymphocytes (%) (Auto) 27, Monocytes (%) (Auto) 4, Eosinophils (%) (Auto) 4, Basophils (%) (Auto) 0, Neutrophils # (Auto) 5.4, Lymphocytes # (Auto) 2.3, Monocytes # (Auto) 0.4, Eosinophils # (Auto) 0.3, Basophils # (Auto) 0.0, Immature Granulocyte # (Auto) 0.0, Blood Gas Puncture Site RIGHT RADIAL, Blood Gas Patient Temperature 36.7, Arterial Blood pH 7.33*L, Arterial Blood Partial Pressure CO2 44, Arterial Blood Partial Pressure O2 179H, Arterial Blood HCO3 22L, Arterial Blood Total CO2 23.7, Arterial Blood Oxygen Saturation 100, Arterial Blood Base Excess -2.8L, Gregorio Test POSITIVE, Blood Gas Ventilator Setting YES, Blood Gas Inspired Oxygen 80, Sodium Level 144, Potassium Level 3.6, Chloride Level 113H, Carbon Dioxide Level 22, Anion Gap 9, Blood Urea Nitrogen 34H, Creatinine 1.47H, Estimat Glomerular Filtration Rate 47, BUN/Creatinine Ratio 23, Glucose Level 113H, Calcium Level 8.3L, Corrected Calcium 9.3, Phosphorus Level 3.3, Magnesium Level 1.9, Total Bilirubin 0.6, Aspartate Amino Transf (AST/SGOT) 30, Alanine Aminotransferase (ALT/SGPT) 64H, Alkaline Phosphatase 23L, Total Protein 4.9L, Albumin 2.7L 03/09/20 04:54: Ammonia 37H 03/09/20 11:19: Glucometer 123H Microbiology 03/04/20 Blood Culture - Preliminary, Resulted No growth 03/04/20 Influenza Types A,B Antigen (ANGEL) - Final, Complete Laboratory Tests 03/08/20 04:25 03/09/20 02:22 A/P: Assessment: Status post acute respiratory failure, intubated and sedated Acute on chronic respiratory failure since December 2019, multiple hospitalization requiring BiPAP Congestive heart failure, acute left ventricular systolic dysfunction Nonischemic cardiomyopathy Echocardiogram Mar 05, [address] Rodriguez showed LVEF 10-15%, mild to mod MR, PASP 45-50mmHg Cardiac catheterization carried out on March 06, 2020 showing mild coronary artery disease non-obstructive disease, elevated left ventricular end-diastolic pressure History of DVT, patient has been maintained on anticoagulation, reported by his that he had it since 2018 History of colostomy done in 2018. Acute renal insufficiency Pulmonary hypertension Plan: Management of respiratory failure per pulmonary services NICM with acute on chronic systolic CHF Continue diuretics Continue BB Add low dose CARLI Monitor lab closely Replace electrolytes as indicated ANDRY KNOTT MD FACP FAC CCDS Mar 09, 2020 14:33
--- NOTE | 2020-03-09 16:02 | NUR ---
"TF ASSESSMENT Est kcal needs: 1600 kcal | 15 kcal/kg Est Pro needs: 64 g Pro | 0.6 g Pro/kg Note pt is currently NPO x5d, per chart review. Note pt is currently intubated/sedated. Would recommend the following TF to reduce risk of malnutrition: Pulmocare 1.5 kcal at goal rate of 45ml/hr. Begin at 15ml/hr and increase by 10ml q6h as medically able and as tolerated. At goal rate, provides 1620 kcal (15 kcal/kg); 68 g Pro (0.6 g Pro/kg); and 848ml free water. Flush with 75ml water q4h for hydration status. With flushes, provides 1298ml free water. Will continue to follow and reassess as pt needs, intake, and status change. Yulissa Bee MS RD LD [phone] (cell)"
[2020-03-09] MEDS: ENALAPRILAT 1.25 MG/1 ML (VASOTEC) 1 ML VIAL IV SCH (20:01)
[2020-03-10] MEDS: DexMEDEtomidine PRE MIX 100 ML IV SCH ×2 (01:51→15:55)
[2020-03-10] MEDS: PROPOFOL DRIP (ICU) 100 ML IV SCH (01:52)
[2020-03-10 02:07] VITALS: BP 147/105
[2020-03-10] MEDS: IPRATROPIUM INHALER (ATROVENT) 12.9 GM INH SCH ×4 (02:07→22:12)
[2020-03-10] MEDS: RT-ALBUTEROL INHALER HFA (VENTOLIN HFA) 18 GM IH SCH ×4 (02:07→22:11)
[2020-03-10 02:42] LABS: BASOPHILS % (AUTO) 0 % (0-10); EOSINOPHILS # (AUTO) 0.4 10^3/uL (0.0-0.3); EOSINOPHILS % (AUTO) 6 % (0-10); HEMATOCRIT 35 % (40-54); LYMPHOCYTES # (AUTO) 2.1 10^3/uL (1.0-4.0); LYMPHOCYTES % (AUTO) 29 % (12-44); MEAN CORPUSCULAR HEMOGLOBIN 30 pg (25-34); MEAN CORPUSCULAR HGB CONC 31 g/dL (32-36); MEAN CORPUSCULAR VOLUME 97 fL (80-99); MEAN PLATELET VOLUME 11.5 fL (9.0-12.2); MONOCYTES # (AUTO) 0.4 10^3/uL (0.0-1.0); MONOCYTES % (AUTO) 5 % (0-12); NEUTROPHILS # (AUTO) 4.4 10^3/uL (1.8-7.8); NEUTROPHILS % (AUTO) 60 % (42-75); PLATELET COUNT 125 10^3/uL (130-400); WHITE BLOOD COUNT 7.4 10^3/uL (4.3-11.0)
[2020-03-10 02:46] LABS: ABG BASE EXCESS -1.1 MMOL/L (-2.5-2.5); ABG OXYGEN SATURATION 98 % (94-100); ABG PCO2 37 MMHG (35-45); ABG PH 7.41 (7.37-7.43); ABG PO2 100 MMHG (79-93); ABG TCO2 24.1 MMOL/L (21.0-31.0); ALLENS TEST YES-POS
[2020-03-10 02:51] LABS: CHLORIDE 111 MMOL/L (98-107); SODIUM 145 MMOL/L (135-145)
[2020-03-10 02:53] LABS: CALCIUM 8.5 MG/DL (8.5-10.1); GLUCOSE 74 MG/DL (70-105); TRIGLYCERIDES 260 MG/DL (<150)
[2020-03-10 02:55] LABS: CARBON DIOXIDE 23 MMOL/L (21-32)
[2020-03-10 02:56] LABS: PATIENT TEMP 36.1; VENTILATOR YES
[2020-03-10 02:57] LABS: CREATININE SERUM 1.13 MG/DL (0.60-1.30); GFR ESTIMATED > 60; PHOSPHORUS 2.4 MG/DL (2.3-4.7)
[2020-03-10 02:58] LABS: BUN/CREATININE RATIO 24; INSPIRED O2 40%
[2020-03-10 02:59] LABS: MAGNESIUM 1.7 MG/DL (1.6-2.4)
[2020-03-10] MEDS: meTOprolol 5 MG/5 ML (LOPRESSOR) VIAL IV SCH ×3 (03:30→11:19)
[2020-03-10] MEDS ORDERED: POTASSIUM CL 10MEQ/50ML IVPB 50 ML IV SCH (04:30)
--- NOTE | 2020-03-10 04:34 | Pulmonary Progress Note ---
MELINDA LOUISE MED STUDENT 03/10/20 0434: Subjective Date Seen by a Provider: Mar 10, 2020 Time Seen by a Provider: 04:21 Subjective/Events-last exam pt appears comfortably sedated Sepsis Event Evaluation Height, Weight, BMI Height: '" Weight: lbs. oz. kg; 33.22 BMI Method: Exam Exam Vital Signs Date Time Temp Pulse Resp B/P (MAP) Pulse Ox O2 Delivery O2 Flow Rate FiO2 03/10/20 02:40 Mechanical Ventilator 30.00 03/10/20 02:07 126 16 96 40 03/10/20 01:52 126 149/108 03/10/20 01:51 36.1 126 16 149/108 Mechanical Ventilator 40.00 03/10/20 01:00 126 03/10/20 00:00 36.1 125 149/108 96 Mechanical Ventilator 40.00 03/10/20 00:00 95 Mechanical Ventilator 40 03/09/20 23:00 36.2 126 151/108 94 Mechanical Ventilator 40.00 03/09/20 22:00 36.3 126 147/105 95 Mechanical Ventilator 40.00 03/09/20 21:30 126 148/103 03/09/20 21:30 36.5 126 17 148/103 94 Mechanical Ventilator 40.00 03/09/20 21:26 126 16 95 40 03/09/20 21:00 36.6 126 149/103 95 Mechanical Ventilator 40.00 03/09/20 20:00 95 Mechanical Ventilator 40 03/09/20 20:00 36.8 126 139/105 95 Mechanical Ventilator 40.00 03/09/20 19:53 36.8 03/09/20 19:00 36.8 126 138/103 95 Mechanical Ventilator 40.00 03/09/20 19:00 126 03/09/20 18:23 128 16 95 40 03/09/20 18:00 36.7 126 137/105 95 Mechanical Ventilator 40.00 03/09/20 17:00 126 135/104 95 Mechanical Ventilator 40.00 03/09/20 16:47 126 137/103 03/09/20 16:47 126 137/103 Mechanical Ventilator 40.00 03/09/20 16:07 95 Mechanical Ventilator 40 03/09/20 16:00 126 136/102 95 Mechanical Ventilator 40.00 03/09/20 16:00 35.9 03/09/20 15:00 138 94 Mechanical Ventilator 40.00 135/104 03/09/20 14:35 126 16 93 40 03/09/20 14:00 125 95 Mechanical Ventilator 40.00 131/102 03/09/20 13:00 125 97 Mechanical Ventilator 40.00 137/100 03/09/20 12:37 125 03/09/20 12:32 124 16 132/99 03/09/20 12:31 124 132/99 03/09/20 12:00 96 Mechanical Ventilator 40 03/09/20 12:00 125 134/99 97 Mechanical Ventilator 40.00 03/09/20 12:00 36.4 03/09/20 11:00 124 131/97 95 Mechanical Ventilator 40.00 03/09/20 10:45 124 133/92 95 03/09/20 10:30 124 134/95 95 03/09/20 10:15 124 130/95 95 03/09/20 10:00 124 127/94 95 03/09/20 09:54 124 16 94 40 03/09/20 09:45 123 124/88 93 03/09/20 09:31 36.4 123 16 123/94 94 Mechanical Ventilator 40.00 03/09/20 09:30 123 123/94 94 03/09/20 09:15 123 125/93 94 03/09/20 09:00 126/93 03/09/20 08:45 124 125/96 95 03/09/20 08:30 124 128/95 96 03/09/20 08:15 125/95 03/09/20 08:00 124 127/95 93 03/09/20 08:00 93 Mechanical Ventilator 40 03/09/20 08:00 36.4 03/09/20 07:33 123 130/97 03/09/20 07:00 36.5 123 /94 92 Mechanical Ventilator 40.00 127/94 03/09/20 06:41 124 03/09/20 06:35 124 94 40 03/09/20 06:17 40 03/09/20 06:15 124 16 99 55 03/09/20 06:15 36.6 124 124/91 99 Mechanical Ventilator 40.00 03/09/20 06:00 36.6 124 120/93 100 Mechanical Ventilator 70.00 03/09/20 05:00 36.6 124 128/92 100 Mechanical Ventilator 70.00 I & O 03/10/20 07:00 Intake Total 1470 ml Output Total 3250 ml Balance -1780 ml Height & Weight Height: '" Weight: lbs. oz. kg; 33.22 BMI Method: General Appearance: No Apparent Distress, WD/WN HEENT: Moist Mucous Membranes Respiratory: No Accessory Muscle Use, No Respiratory Distress, Wheezing Cardiovascular: No Gallop, No JVD, No Murmur, Normal Peripheral Pulses, Tachyc ardia, Other (Edema present) Capillary Refill: Less Than 3 Seconds Peripheral Pulses: 1+ Dorsalis Pedis (R), 1+ Left Dors-Pedis (L); 2+ Radial Pulses (R), 2+ Radial Pulses (L) Gastrointestinal: soft, other (obese/Colostomy present) Extremity: Normal Inspection Skin: Normal Color, Warm/Dry Lymphatic: No Adenopathy Results Lab Laboratory Tests 03/09/20 02:22 03/10/20 02:28 Assessment/Plan Assessment/Plan Acute Respiratory Failure -ventilation management -titrate O2 down- currently 30% with PEEP of 5 Recent acute PE, bilateral DVTs -Continue Lovenox COPD, smoker -advise smoking cessation once extubated and conscious Hypokalemia -replace potassium EF of 10% -nonischemic cardiomyopathy -tachycardic -started on low dose beta doug IV -Monitor LORETTA -Monitor renal function closely -BUN, Cr decreasing, but ratio still over 20 -monitor I/O, pt appears edematous -transfer to [facility] or [facility] for dialysis if no improvement Monitor labs for: -HTN -Elevated Triglycerides, chloride, BUN -low potassium and other electrolytes Debility -hold PT/OT pending extubation s/p colostomy (2018) COVID swab neg DVT prophylaxis: lovenox Compression ulcer prophylaxis: boots, frequent turnings Critical Care: Ventilator Management Advance Care discuss with: family member (s) Advance Care Discussion: initiate discussion LEONILA MEYER DO 03/10/20 0525: Subjective Subjective/Events-last exam Sedated on vent/. Assessment/Plan Assessment/Plan Acute respiratory failure -Extubated 03/07 however then reintubated 03/08 secondary to progressive respiratory failure -Will attempt vent weaning today. -COVID is negative -Titrate 02 oxygen down. PNA -Currently on Zosyn Severe cardiomyopathy with EF of 10% -Cardiology following Liver failure- probably congestive hepatitis Multiple hospitalizations Chronic colostomy since 2018 COPD Hypokalemia -replace Acute PE and bilateral DVTs dx 03/02/20 -Lovenox theraputic dose LORETTA GI/DVT PPX Overall prognosis is guarded to poor. Consult law firm administrator for education. Consider hospice vs [facility] hospital. MELINDA LOUISE MED STUDENT Mar 10, 2020 04:34 LEONILA MEYER DO Mar 10, 2020 05:25
[2020-03-10] MEDS: POTASSIUM CL 10MEQ/50ML IVPB 50 ML IV SCH ×10 (04:44→09:29)
[2020-03-10] MEDS: MAGNESIUM 1 GM/100 ML IVPB 100 ML IV SCH (06:12)
[2020-03-10] MEDS: KCL 20 MEQ TAB (K-DUR) PO SCH (06:12)
[2020-03-10 07:07] LABS: ABG BASE EXCESS -1.5 MMOL/L (-2.5-2.5); ABG OXYGEN SATURATION 97 % (94-100); ABG PCO2 39 MMHG (35-45); ABG PH 7.39 (7.37-7.43); ABG PO2 82 MMHG (79-93); ABG TCO2 24.2 MMOL/L (21.0-31.0)
[2020-03-10 07:12] LABS: ALLENS TEST YES-POS; INSPIRED O2 30%; VENTILATOR YES
[2020-03-10 07:13] LABS: PATIENT TEMP 36.1
--- NOTE | 2020-03-10 07:45 | NUR ---
TIMELINE NOTE BELOW: 03/10/2020 AT 0731: PT EXTUBATED BY MED STUDENT WITH RICKY, RT AT PT BEDSIDE. ETT AND OG REMOVED WITHOUT COMPLICATIONS, PT PLACED ON VAPOTHERM AT 20L 30% AND SATURATING 95%. 03/10/2020 AT 0745: RESTRAINTS REMOVED FROM BILATERAL WRISTS. NO INJURIES NOTED.
[2020-03-10] MEDS: PANTOPRAZOLE 40 MG (PROTONIX) VIAL IV SCH (08:07)
[2020-03-10] MEDS: ENALAPRILAT 1.25 MG/1 ML (VASOTEC) 1 ML VIAL IV SCH ×2 (08:08→21:28)
[2020-03-10] MEDS: BUMETANIDE 1 MG/4 ML (BUMEX) VIAL IV SCH (08:08)
--- NOTE | 2020-03-10 08:31 | Diagnostic Imaging Report ---
INDICATION: Mechanical ventilation. TECHNIQUE: Single view chest 2:46 AM. CORRELATION STUDY: 03/09/2020 FINDINGS: Endotracheal tube projects over the trachea midway between the clavicles and paola. Gastric tube passes below the diaphragm. Right IJ central line tip over the SVC. Heart size remains enlarged. Vasculature appears increasing with increasing perihilar edema present. Scattered bilateral pulmonary parenchymal opacities the right greater than left most pronounced lung bases along with bilateral pleural effusions also appears to be generally increased. IMPRESSION: 1. Stable support lines and tubes. 2. Appears to be increasing pulmonary vascular congestion along with perihilar edema. 3. Increasing opacities throughout both lung ladd indeterminate between edema versus infiltrate along with a bilateral pleural effusions right greater than left. Dictated by: Dictated on workstation # [id number]
--- NOTE | 2020-03-10 08:36 | NUR ---
REPORT CALLED TO PATRICIA STONE. Addendum: 03/10/20 at 0956 by HUGH SANCHEZ RN AMENDEMENT TO NOTE ABOVE: THIS NOTE WAS PLACED UNDER THE WRONG PATIENT.
--- NOTE | 2020-03-10 09:34 | Physical Therapy Evaluation ---
PT Evaluation-General Medical Diagnosis Admission Date Mar 04, 2020 at 09:15 Medical Diagnosis: COPD/CHF Onset Date: Mar 04, 2020 Therapy Diagnosis Therapy Diagnosis: generalized weakness/debility Precautions Precautions/Isolations: Fall Prevention, Standard Precautions Referral Physician: Jose Reason for Referral: Evaluation/Treatment Medical History Pertinent Medical History: COPD, HTN, PVD Current History transfer from [facility] secondary to an acute PE 03/02/20 Reviewed History: Yes Prior Prior Level of Function SCALE: Activities may be completed with or without assistive devices. 6-Nfawizmzqs-xairuox completes the activity by him/herself with no assistance from a helper. 5-Set-up or Clean-up Assistance-helper sets up or cleans up; patient completes activity. [place] assists only prior to or following the activity. 4-Supervision or Touching Assistance-helper provides verbal cues and/or touching/steadying and/or contact guard assistance as patient completes activity. Assistance may be provided throughout the activity or intermittently. 3-Partial/Moderate Assistance-helper does LESS THAN HALF the effort. [place] lifts, holds or supports trunk or limbs, but provides less than half the effort. 2-Substantial/Maximal Assistance-helper does MORE THAN HALF the effort. [place] lifts or holds trunk or limbs and provides more than half the effort. 0-Tkufeebsl-nyfexf does ALL the effort. Patient does none of the effort to complete the activity. Or, the assistance of 2 or more helpers is required for the patient to complete the activity. If activity was not attempted, code reason: 7-Patient Refused. 9-Not Applicable-not attempted and the patient did not perform the activity before the current illness, exacerbation or injury. 10-Not Attempted due to Environmental Limitations-(lack of equipment, weather restraints, etc.). 88-Not Attempted due to Medical Conditions or Safety Concerns. Bed Mobility: 6 Transfers (B,C,W/C): 6 Gait: 6 PT Evaluation-Current Subjective Patient is in bed and very lethargic and moaning. Per nursing, patient becomes agitated and combative. Objective Patient Orientation: Mumbles (and laughs), Listless Attachments: Oxygen, Mckeon Catheter, IV ROM/Strength ROM Lower Extremities bilateral LE WFL Strength Lower Extremities unable to adequately assess due to patient current state and inability to follow simple direction Integumentary/Posture Integumentary refer to nursing notes Bladder Incontinence: Mckeon Cath Neuromuscular (Tone, Coordination, Reflexes) unable to assess Sensory Vision: Unable to Assess Hearing: Unable to Assess Transfers Roll Left to Right (QC): 1 (repositioned due to right UE hanging off of bed between rails) Gait Does the Patient Walk?: No and Walking Goal IS indicated Treatment bilateral LE PROM performed in supine Assessment/Needs 69 y.o. male, will be seen by skilled PT to address functional strength and mobility. Patient is currently very lethargic and unable to follow simple direction, however, was recently extubated. PT to increase activity as tolerated by patient. Rehab Potential: Guarded PT Short Term Goals Short Term Goals Time Frame: Mar 18, 2020 Roll Left & Right: 3 Sit to lyin Lying to sitting on side of be: 3 Sit to stand: 3 Chair/oyw-oj-vmtca transfer: 3 PT Candy Waffle Assembler Goals Candy Waffle Assembler Goals PT Candy Waffle Assembler Goals Time Frame: Mar 28, 2020 Roll Left & Right (QC): 5 Sit to Lying (QC): 5 Lying-Sitting on Side/Bed(QC): 5 Sit to Stand (QC): 5 Chair/Vjb-zz-Orznf Xfer(QC): 5 Toilet Transfer (QC): 5 Does the Patient Walk: Yes Walk 10 feet (QC): 5 Walk 50ft with 2 Turns (QC): 5 Walk 150 ft (QC): 5 PT Plan Problem List Problem List: Activity Tolerance, Functional Strength, Safety, Balance, Gait, Transfer, Bed Mobility Treatment/Plan Treatment Plan: Continue Plan of Care Treatment Plan: Bed Mobility, Education, Functional Activity Nitin, Functional Strength, Gait, Safety, Therapeutic Exercise, Transfers Treatment Duration: Mar 28, 2020 Frequency: 5 times per week (increase to 6/wk when able to tolerate) Estimated Hrs Per Day: .25 hour per day Time/GCodes Time In: 850 Time Out: 902 Total Billed Treatment Time: 12 [facility] THE[facility] Mar 10, 2020 09:34
--- NOTE | 2020-03-10 09:42 | NUR ---
PALLIATIVE CARE RN in to see patient. He has just been extubated this morning and is at this time alert and seems to be delirious, moving all about the best sayin g "help" and asking for "momma". He cannot verbalize how he needs help but when i said "we are trying to help you get better", he responds with a "No you are not". He is edematous in his upper and lower extremity, which are cool to the touch and dry. He appears to have mottling over knees. He is noted on monitor worker to be tachycardic and as well as hypertensive. I am unsure what discussion the physicians have had with Kathy, patient's . Loving has been a POC discussed in the hospital but do not think it has been discussed with the patient as of yet. I am to follow along and offer support to the family as needed for POC moving forward.
--- NOTE | 2020-03-10 09:51 | Progress Note - Hospitalist ---
Subjective HPI/CC On Admission Date Seen by Provider: Mar 10, 2020 Time Seen by Provider: 09:00 CC: Respiratory failure requiring urgent intubation HPI: This is a 69yoWM patient [facility] early this am who presented with dyspnea and hypoxia. PE dx 03/02/20 placed on OAC Eliquis and DC home and given steroids and Lopressor for tachycardia but then returned with increased dyspnea requiring ER visit then move to [facility] ICU and patient was decompensating so Dr Phillips ordered intubation. More records will be reviewed. Dr Shelton and I conferred at 1150am. COVID swab pending but rapid was negative. Subjective/Events-last exam Extubated today Severe delirium Reaching out to [place] Moaning and wheezing at times May be a hospice candidate with 10% ejection fraction Could have cardiorenal syndrome will monitor closely Review of Systems General: Fatigue, Malaise Neurological: Weakness, Confusion Objective Exam Vital Signs Vital Signs Date Time Temp Pulse Resp B/P (MAP) Pulse Ox O2 Delivery O2 Flow Rate FiO2 03/10/20 20:15 36.4 129 138/94 95 NIV Bilevel 03/10/20 18:19 22 30.00 03/10/20 16:00 30 Capillary Refill : Less Than 3 Seconds General Appearance: No Apparent Distress, WD/WN HEENT: PERRL/EOMI, Normal ENT Inspection, Pharynx Normal, Moist Mucous Membranes Neck: Full Range of Motion, Normal Inspection, Non Tender, Supple, Carotid Bruit Respiratory: Chest Non Tender, Lungs Clear, Normal Breath Sounds, No Accessory Muscle Use, No Respiratory Distress Cardiovascular: No Edema, No Gallop, No JVD, No Murmur, Normal Peripheral Pulses, Tachycardia Gastrointestinal: Normal Bowel Sounds, No Organomegaly, No Pulsatile Mass, Non Tender, Soft Back: Normal Inspection, No CVA Tenderness, No Vertebral Tenderness Extremity: Normal Capillary Refill, Normal Inspection, Normal Range of Motion, Non Tender, No Calf Tenderness, No Pedal Edema Neurologic/Psychiatric: Alert, No Motor/Sensory Deficits, Normal Mood/Affect, Disoriented Skin: Normal Color, Warm/Dry Lymphatic: No Adenopathy Results/Procedures Lab Patient resulted labs reviewed. Assessment/Plan Assessment and Plan Assess & Plan/Chief Complaint Assessment: Acute respiratory failure requiring emergent intubation Recent acute PE diagnosed 03/02/20 placed on Eliquis COPD h/o smoker LORETTA HTN HLP Elevated BNP Bilateral DVT Elevated troponin Plan: ICU consultation Anticoagulation Vent management Supportive care Empiric abx COVID swab neg ARF management Consult Dr Rodriguez 03/06/20: s/p cardiac cath revealing non-ischemic cardiomyopathy Extubate? 03/07/20: Extubate? Monitor closely 03/08/20: Extubated but then reintubated 03/09/20: Sedated Maintain intubation Appreciate critical care 03/10/20: [place] vs. hospice Monitor severe delirium Critical Care Ventilator Management Clinical Quality Measures DVT/VTE Risk/Contraindication: Risk Factor Score Per Nursin RFS Level Per Nursing on Admit: 4+=Very High SELMA WILDE DO Mar 10, 2020 09:50
[2020-03-10] MEDS ORDERED: HALOPERIDOL 5 MG/ML (HALDOL) VIAL IV PRN (10:15)
[2020-03-10] MEDS: ADVAIR HFA 115/21 MCG INHALER 8 GM IH SCH ×2 (10:53→22:12)
[2020-03-10] MEDS: ENOXAPARIN 100 MG/1 ML (LOVENOX) SYR SC SCH ×2 (11:18→21:28)
--- NOTE | 2020-03-10 11:52 | Progress Note - Cardiology ---
Cardiology SOAP Progress Note Subjective: Extubated this am. Confused Does not report cp or palp or syncope or other symptoms States does not feel well, but cannot be more specific Objective: I&O/Vital Signs 03/10/20 03/10/20 03/10/20 03/10/20 00:00 00:00 01:00 01:00 Temp 36.1 36.1 Pulse 125 126 126 B/P (MAP) 149/108 145/109 Pulse Ox 95 96 96 O2 Delivery Mechanical Ventilator Mechanical Ventilator Mechanical Ventilator O2 Flow Rate 40.00 40.00 FiO2 40 03/10/20 03/10/20 03/10/20 03/10/20 01:51 01:52 02:00 02:07 Temp 36.1 36.1 Pulse 126 126 126 126 Resp 16 16 B/P (MAP) 149/108 149/108 147/105 Pulse Ox 96 96 O2 Delivery Mechanical Ventilator Mechanical Ventilator O2 Flow Rate 40.00 40.00 FiO2 40 03/10/20 03/10/20 03/10/20 03/10/20 02:40 03:00 04:00 04:00 Temp 36.1 36.0 Pulse 126 125 B/P (MAP) 143/103 142/105 Pulse Ox 94 94 95 O2 Delivery Mechanical Ventilator Mechanical Ventilator Mechanical Ventilator Mechanical Ventilator O2 Flow Rate 30.00 30.00 30.00 FiO2 40 03/10/20 03/10/20 03/10/20 03/10/20 05:00 06:00 06:30 06:47 Temp 36.0 36.0 Pulse 126 128 128 127 Resp 29 B/P (MAP) 140/103 132/101 Pulse Ox 94 95 94 O2 Delivery Mechanical Ventilator Mechanical Ventilator O2 Flow Rate 30.00 30.00 FiO2 30 03/10/20 03/10/20 03/10/20 07:51 10:54 11:38 Pulse Ox 95 94 91 O2 Delivery Vapotherm Vapotherm Vapotherm O2 Flow Rate 20.00 15.00 20.00 FiO2 30 30 30 03/10/20 00:00 Intake Total 200 ml Output Total 1950 ml Balance -1750 ml Constitutional: No AAO x 3; other (agitated and restless) Respiratory: chest expansion is symmetric, chest is bilaterally symmetric, crackles, rhonchi (scattered) Cardiovascular: regular rate-rhythm, tachycardia, systolic murmur Gastrointestional: soft, audible bowel sounds, other (LLQ colostomy) Extremities: other (dry, flaky, ruddish LE bilat), no lower extremity edema bilateral Neurologic/Psychiatric: No oriented x 3; other (moves all limbs equally) Skin: other (see above) Results/Procedures: Labs Laboratory Tests 03/09/20 17:50: Glucometer 87 03/10/20 02:28: White Blood Count 7.4, Red Blood Count 3.62L, Hemoglobin 11.0L, Hematocrit 35L, Mean Corpuscular Volume 97, Mean Corpuscular Hemoglobin 30, Mean Corpuscular Hemoglobin Concent 31L, Red Cell Distribution Width 16.1H, Platelet Count 125L, Mean Platelet Volume 11.5, Immature Granulocyte % (Auto) 0, Neutrophils (%) (Auto) 60, Lymphocytes (%) (Auto) 29, Monocytes (%) (Auto) 5, Eosinophils (%) (Auto) 6, Basophils (%) (Auto) 0, Neutrophils # (Auto) 4.4, Lymphocytes # (Auto) 2.1, Monocytes # (Auto) 0.4, Eosinophils # (Auto) 0.4H, Basophils # (Auto) 0.0, Immature Granulocyte # (Auto) 0.0, Blood Gas Puncture Site RIGHT RADIAL, Blood Gas Patient Temperature 36.1, Arterial Blood pH 7.41, Arterial Blood Partial Pressure CO2 37, Arterial Blood Partial Pressure O2 100H, Arterial Blood HCO3 23, Arterial Blood Total CO2 24.1, Arterial Blood Oxygen Saturation 98, Arterial Blood Base Excess -1.1, Gregorio Test YES-POS, Blood Gas Ventilator Setting YES, Blood Gas Inspired Oxygen 40%, Sodium Level 145, Potassium Level 3.0L, Chloride Level 111H, Carbon Dioxide Level 23, Anion Gap 11, Blood Urea Nitrogen 27H, Creatinine 1.13, Estimat Glomerular Filtration Rate > 60, BUN/Creatinine Ratio 24, Glucose Level 74, Calcium Level 8.5, Phosphorus Level 2.4, Magnesium Level 1.7, Triglycerides Level 260H 03/10/20 06:56: Blood Gas Puncture Site RT RADIAL, Blood Gas Patient Temperature 36.1, Arterial Blood pH 7.39, Arterial Blood Partial Pressure CO2 39, Arterial Blood Partial Pressure O2 82, Arterial Blood HCO3 23, Arterial Blood Total CO2 24.2, Arterial Blood Oxygen Saturation 97, Arterial Blood Base Excess -1.5, Gregorio Test YES-POS, Blood Gas Ventilator Setting YES, Blood Gas Inspired Oxygen 30% Microbiology 03/04/20 Gram Stain - Final, Resulted 03/04/20 Sputum Culture, Resulted Pending 03/04/20 Blood Culture - Final, Complete No growth Laboratory Tests 03/09/20 02:22 03/10/20 02:28 A/P: Assessment: Acute on chronic respiratory failure since December 2019, multiple hospitalization requiring BiPAP Acute systolic CHF due to nonischemic cardiomyopath Echocardiogram Mar 05, [address] Rodriguez showed LVEF 10-15%, mild to mod MR, PASP 45-50mmHg Cardiac catheterization carried out on March 06, 2020 showing mild coronary artery disease non-obstructive disease, elevated left ventricular end-diastolic pressure History of DVT, patient has been maintained on anticoagulation, reported by his that he has had it since 2018 History of colostomy done in 2018. Acute renal insufficiency, improved Plan: Continue iv diuretics and bb and ACRLI-inhib for now Switch to oral meds when less agitated and more oriented Replenish K Monitor labs ANDRY KNOTT MD FACP FAC CCDS Mar 10, 2020 11:52
--- NOTE | 2020-03-10 12:51 | Progress Note ---
MARQUES SIMMONS MED STUDENT 03/10/20 1251: Progress Note Martin Burns is a 69 y/o male with Hx of HTN, HLD, and COPD who presents from [facility] in [place] for SOB. Patient was dx with PE and bilateral pleural effusions on 03/02, d/c'd after IV steroids DuoNeb and Lopressor with Eliquis. Patient arrived in the [facility] ER again on 03/04 for worsening SOB and O2 sat of 87% on arrival. Patient was subsequently transfered to [facility] ICU and decompensated after arrival, prompting intubation. Dr. Rodriguez was consulted, echo showed sinus tachycardia and EF of 10-15%, patient later underwent cardiac catheterization which showed mild CAD, nonobstructive diease and severe nonobstructive cardiomyopathy. Dr. Shelton was also consulted for respiratory management, attempted extubation on 03/08 after which the patient became agitated, became aggressive towards staff and ripped out his lines. Patient was sedated and reintubated with plans to tirate down O2 level. Patient was extubated today, per cardiology note: patient was confused with nonspecific complaints other than "not feeling well", denies CP, palpitations and syncope. Prognosis is poor, recommendation of hospice vs [facility] hospital in agreement with Dr. Shelton. Management of respiratory failure per pulmonology, management of NICM and CHF by cardiology and monitor labs. Will continue supportive care and discuss with patient's family for placement. CECILY WILDE DO 03/11/20 0529: Supervisory-Addendum Brief Verification & Attestation Participated in pt care: history, MDM, physical Personally performed: exam, history, MDM, supervision of care Care discussed with: Medical Student Procedures: n/a Results interpretation: Verified all documentation Verification and Attestation of Medical Student E/M Service A medical student performed and documented this service in my presence. I reviewed and verified all information documented by the medical student and made modifications to such information, when appropriate. I personally performed the physical exam and medical decision making. Cecily Wilde, Mar 11, 2020,05:29 MARQUES SIMMONS MED STUDENT Mar 10, 2020 12:51 CECILY WILDE DO Mar 11, 2020 05:29
--- NOTE | 2020-03-10 13:20 | NUR ---
THIS NURSE NOTIFIED DR Call WITH EICU PT HR HAS BEEN 130-140S AND BP HAS BEEN 160-170S/100-120. PT IS ABD BREATHING, DIAPHORETIC, AND STILL VERY CONFUSED. ORDER TO GIVE MORPHINE FOR POSSIBLE PAIN. WILL CONTINUE TO MONITOR.
[2020-03-10] MEDS: morphine INJ 4 MG/ML 1 ML (VIAL/SYRINGE) IVP PRN ×2 (13:28→20:10)
--- NOTE | 2020-03-10 15:10 | NUR ---
THIS NURSE NOTIFIED DR KNOTT THAT PT BP HAS BEEN 160-180S/100-120S AND HIS HR HAS BEEN 130-140S. PT IS STILL CONFUSED BUT NOT AGITATED.THIS NURSE GAVE MORPHINE FOR PAIN, WHICH DID NOT HELP. ORDER GIVEN FOR LOPRESSOR. SEE ORDER HX. WILL CONTINUE TO MONITOR.
[2020-03-10] MEDS ORDERED: meTOprolol 5 MG/5 ML (LOPRESSOR) VIAL ONE (15:11)
[2020-03-10] MEDS ORDERED: meTOprolol 5 MG/5 ML (LOPRESSOR) VIAL IV SCH (15:15)
--- NOTE | 2020-03-10 15:21 | NUR ---
PALLIATIVE CARE RN attempted to call patient's , Kathy. [phone]. She is reported to be at work at this time of the call, gets off at 5 p.m. Will try again in the morning.
--- NOTE | 2020-03-10 15:30 | NUR ---
DR MEYER AND RT AT BEDSIDE. PT BREATHING IS STILL LABORED. NURSE ADMINISTERED [address] KNOTT. HR IS 130-140S AND BP HAS BEEN 160-170S/110-1200S. PT IS FOLLOWING COMMANDS AND KNOWS WHERE HE IS AT BUT STILL CONFUSED. PUPILS ARE EQUAL AND REACTIVE. ORDERS GIVEN FOR ABG AND STAT ACCU CHECK. SEE ORDER HX. THIS NURSE AT BEDSIDE WILL CONTINUE TO MONITOR.
[2020-03-10 15:34] LABS: ABG BASE EXCESS -2.9 MMOL/L (-2.5-2.5); ABG OXYGEN SATURATION 72 % (94-100); ABG PCO2 46 MMHG (35-45); ABG PO2 50 MMHG (79-93); ABG TCO2 23.5 MMOL/L (21.0-31.0)
--- NOTE | 2020-03-10 15:34 | Pulmonary Progress Note ---
Standard Progress Note Progress Notes Date Seen by Provider: Mar 10, 2020 Time Seen by Provider: 15:29 Called to bedside to evaluate pt secondary to MS. pt will follow commands however he appears very weak bilaterally. He also appears to have right facial droop. Eyes: PERRL. Pt does have increased WOB and diminished bilaterally. -Will check ABG -BiPAP PRN and HS -Obtain CT of head with and without contrast. Sinus tachycardia and HTN -Bedside swallow eval -If able will start PO Lopressor. -Cardiology is following and is aware of tachycardia. Lopressor was given. Agitation -Pt is currently Lethargic -Check ABG -Check accu check With desk pen set assembler we called patients to give update on her . does not want pt to be reintubated and upon further discussion she wants to make pt DNR. She is planning on visiting patient in AM along with other family then plan is to make patient SPRINKLER FITTER. I also updated Dr. Rose. Assessment & Plan Acute respiratory failure -Extubated 03/07 however then reintubated 03/08 secondary to progressive respiratory failure -COVID is negative -Titrate 02 oxygen down. PNA -Currently on Zosyn Severe cardiomyopathy with EF of 10% -Cardiology following Liver failure- probably congestive hepatitis Multiple hospitalizations Chronic colostomy since 2018 COPD Hypokalemia -replace Acute PE and bilateral DVTs dx 03/02/20 -Lovenox theraputic dose LORETTA GI/DVT PPX Overall prognosis is guarded to poor. Consult reel blade bender furnace tender for education. Consider hospice vs [facility] hospital. Critical Care: Critically Ill Patient Time spent with patient (mins): 60 Focused Exam Time of Focused Exam: 15:32 Respiratory: Crackles, Decreased Breath Sounds Cardiovascular: Tachycardia Capillary Refill: Less Than 3 Seconds Skin: normal color, warm/dry LEONILA MEYER DO Mar 10, 2020 15:34
[2020-03-10 15:41] LABS: ABG PH 7.31 (7.37-7.43)
[2020-03-10 15:42] LABS: ALLENS TEST POS; INSPIRED O2 20L; VENTILATOR NO
[2020-03-10 15:43] LABS: PATIENT TEMP 37.7
[2020-03-10] MEDS ORDERED: IOHEXOL 350 MG/ML 100 ML (OMNIPAQUE 350) VIAL IV ONE ×2 (15:45→16:45)
[2020-03-10] MEDS ORDERED: HOLD METFORMIN - RECEIVED CONTRAST 20 ML VIAL IV SCH ×2 (15:45→16:45)
[2020-03-10] MEDS ORDERED: CATHETER FLUSH 10 ML SYR IV PRN (15:45)
[2020-03-10] MEDS ORDERED: NS 100 ML (IVPB) BAG IV ONE ×2 (15:45→16:45)
[2020-03-10 16:05] VITALS: BP 162/119
[2020-03-10] MEDS ORDERED: meTOprolol TARTRATE 25 MG (LOPRESSOR) TABLET ONE (16:07)
[2020-03-10] MEDS: meTOprolol TARTRATE 25 MG (LOPRESSOR) TABLET PO SCH (16:12)
--- NOTE | 2020-03-10 16:27 | NUR ---
PT IS UNABLE TO TAKE INHALERS AT THIS TIME. PT WILL NOT FOLLOW COMMANDS. Addendum: 03/10/20 at 1627 by RICKY BLANCO RT Amended: Links added.
--- NOTE | 2020-03-10 16:38 | NUR ---
PALLIATIVE CARE RN with Dr. Shelton made a call to Kathy, patients to discuss his worsening condition throughout the day with need for BiPAP and likely re-intubation. We discussed with her the different treatment options including re-intubation, [place] p re-intubation and including CCMO which was fully explained. Kathy was tearful, but able to make the decision for CCMO, saying that he would not like to be on a breathing machine the rest of his life. She has asked if she can visit. Policy is for 1 visitor at a time. She will be in contact with his daughter who lives in [place] for her to visit him tomorrow before removing the BiPAP. Will let the door coloring checker know that this is the plan.
[2020-03-10] MEDS: HALOPERIDOL 5 MG/ML (HALDOL) VIAL IM PRN ×2 (17:25→23:02)
--- NOTE | 2020-03-10 17:30 | NUR ---
THIS NURSE CALLED REPORT TO JERI GOMEZ. RT NOTIFIED. WILL TRANSFER WHEN RT IS READY.
[2020-03-10 18:19] VITALS: BP 134/95
--- NOTE | 2020-03-10 18:30 | NUR ---
Patient arrived to room, at bedside. Patient currently has bipap on but is restless. Intermittently throwing arms around in bed and pulling at mask. LEAK PATCHER gave prn haldol for aggitation before bringing patient down. Will continue to monitor.
[2020-03-10] MEDS: LORazepam INJ 2 MG/ML (ATIVAN) VIAL IV PRN (18:39)
--- NOTE | 2020-03-10 20:10 | NUR ---
Patients requested that other family members come up and see the patient before they take him off BiPap. Contacted the housekeeping director to see if that would be ok. House sup stated it is ok for the family members to come see the patient up they have to switch off at the door. Family notified.
--- NOTE | 2020-03-10 20:29 | NUR ---
Informed Dr. Rose that the family is wanting to take the patient off of BiPap after the family has visited with the patient. Dr. Rose ordered comfort care protocol and Morphine 4mg IV q1 hr PRN.
[2020-03-10] MEDS ORDERED: PROMETHAZINE INJ 25 MG/ML (PHENERGAN) AMP IVP PRN (20:30)
[2020-03-10] MEDS ORDERED: BISACODYL 10 MG SUPP (DULCOLAX) PR PRN (20:30)
[2020-03-10] MEDS ORDERED: SALIVA STIMULANT MOUTH SPRAY (BIOTENE) 1.5 OZ MM PRN (20:30)
[2020-03-10] MEDS ORDERED: ONDANSETRON 4 MG/2 ML (SDV) Z0FRAN IVP PRN (20:30)
[2020-03-10] MEDS ORDERED: ARTIFICAL TEARS 0.4 ML UNIT DOSE (REFRESH PLUS) OU PRN (20:30)
[2020-03-10] MEDS ORDERED: RT-ALBUTEROL/IPRATROPIUM 3 ML (DUONEB) VIAL INH PRN (20:30)
[2020-03-10] MEDS ORDERED: ACETAMINOPHEN 650 MG SUPP (TYLENOL) PR PRN (20:30)
[2020-03-10] MEDS: LORazepam INJ 2 MG/ML (ATIVAN) VIAL IVP PRN ×2 (21:25→23:46)
[2020-03-10] MEDS: morphine INJ 4 MG/ML 1 ML (VIAL/SYRINGE) IV PRN ×3 (21:25→23:45)
--- NOTE | 2020-03-10 23:08 | NUR ---
Spoke with dry house attendant regarding having two visitors while the patient . Porsche stated that it would be fine. Family was informed.
--- NOTE | 2020-03-10 23:09 | NUR ---
Bipap taken off per family request.
[2020-03-11] MEDS: morphine INJ 4 MG/ML 1 ML (VIAL/SYRINGE) IV PRN ×4 (02:24→09:55)
[2020-03-11] MEDS: LORazepam INJ 2 MG/ML (ATIVAN) VIAL IVP PRN (02:24)
[2020-03-11] MEDS: HALOPERIDOL 5 MG/ML (HALDOL) VIAL IM PRN (05:09)
[2020-03-11] MEDS: GLYCOPYRROLATE 0.2 MG/ML (ROBINUL) 2 ML VIAL IV PRN ×2 (05:18→09:55)
[2020-03-11] MEDS: LORazepam INJ 2 MG/ML (ATIVAN) VIAL IV PRN ×2 (05:50→09:55)
[2020-03-11] MEDS: KCL 20 MEQ TAB (K-DUR) PO SCH (06:48)
[2020-03-11] MEDS: MAGNESIUM 1 GM/100 ML IVPB 100 ML IV SCH (06:48)
[2020-03-11] MEDS: POTASSIUM CL 10MEQ/50ML IVPB 50 ML IV SCH (06:48)
[2020-03-11] MEDS: RT-ALBUTEROL INHALER HFA (VENTOLIN HFA) 18 GM IH SCH ×5 (07:39→18:10)
[2020-03-11] MEDS: IPRATROPIUM INHALER (ATROVENT) 12.9 GM INH SCH ×5 (07:39→18:10)
[2020-03-11] MEDS: ADVAIR HFA 115/21 MCG INHALER 8 GM IH SCH (07:41)
[2020-03-11] MEDS: PANTOPRAZOLE 40 MG (PROTONIX) VIAL IV SCH (07:43)
[2020-03-11] MEDS: meTOprolol TARTRATE 25 MG (LOPRESSOR) TABLET PO SCH (07:43)
[2020-03-11] MEDS: ENALAPRILAT 1.25 MG/1 ML (VASOTEC) 1 ML VIAL IV SCH (07:43)
[2020-03-11] MEDS: BUMETANIDE 1 MG/4 ML (BUMEX) VIAL IV SCH (07:43)
[2020-03-11] MEDS: ENOXAPARIN 100 MG/1 ML (LOVENOX) SYR SC SCH (07:44)
--- NOTE | 2020-03-11 09:25 | Progress Note - Hospitalist ---
Subjective HPI/CC On Admission Date Seen by Provider: Mar 11, 2020 Time Seen by Provider: 10:00 CC: Respiratory failure requiring urgent intubation HPI: This is a 69yoWM patient transferred from [facility] early this am who presented with dyspnea and hypoxia. PE dx 03/02/20 placed on OAC Eliquis and DC home and given steroids and Lopressor for tachycardia but then returned with increased dyspnea requiring ER visit then move to [facility] ICU and patient was decompensating so Dr Phillips ordered intubation. More records will be reviewed. Dr Shelton and I conferred at 1150am. COVID swab pending but rapid was negative. Subjective/Events-last exam Pt maintained on comfort care and palliative care at the bedside and I did update her on the plan No pain is reported Confusion is profound Review of Systems General: Fatigue Neurological: Confusion Focused Exam Time of Focused Exam: 15:32 Objective Exam Vital Signs Vital Signs Date Time Temp Pulse Resp B/P (MAP) Pulse Ox O2 Delivery O2 Flow Rate FiO2 03/10/20 20:15 36.4 129 138/94 95 NIV Bilevel 03/10/20 18:19 22 30.00 03/10/20 16:00 30 Capillary Refill : Less Than 3 Seconds General Appearance: No Apparent Distress, Chronically ill Results/Procedures Lab Patient resulted labs reviewed. Assessment/Plan Assessment and Plan Assess & Plan/Chief Complaint Assessment: Acute respiratory failure requiring emergent intubation Recent acute PE diagnosed 03/02/20 placed on Eliquis COPD h/o smoker LORETTA HTN HLP Elevated BNP Bilateral DVT Elevated troponin Plan: ICU consultation Anticoagulation Vent management Supportive care Empiric abx COVID swab neg ARF management Consult Dr Rodriguez 03/06/20: s/p cardiac cath revealing non-ischemic cardiomyopathy Extubate? 03/07/20: Extubate? Monitor closely 03/08/20: Extubated but then reintubated 03/09/20: Sedated Maintain intubation Appreciate critical care 03/10/20: [place] vs. hospice Monitor severe delirium 03/11/20: Comfort care protocol Critical Care Critically Ill Patient Clinical Quality Measures DVT/VTE Risk/Contraindication: Risk Factor Score Per Nursin RFS Level Per Nursing on Admit: 4+=Very High SELMA WILDE DO Mar 11, 2020 09:25
--- NOTE | 2020-03-11 09:57 | Physical Therapy Progress Note ---
Therapy Progress Note Per notes and Nurse, pt on Comfort Care and will not be seen by PT. 03/11/20 913 MERLE CHEEMA PTA Mar 11, 2020 09:57
[2020-03-11] MEDS ORDERED: BISACODYL 10 MG SUPP (DULCOLAX) PR PRN (10:30)
[2020-03-11] MEDS ORDERED: GLYCOPYRROLATE 0.2 MG/ML (ROBINUL) 2 ML VIAL IV PRN (10:30)
[2020-03-11] MEDS ORDERED: LORazepam INJ 2 MG/ML (ATIVAN) VIAL IVP PRN (10:30)
[2020-03-11] MEDS ORDERED: SALIVA STIMULANT MOUTH SPRAY (BIOTENE) 1.5 OZ MM PRN (10:30)
[2020-03-11] MEDS ORDERED: ONDANSETRON 4 MG/2 ML (SDV) Z0FRAN IVP PRN (10:30)
[2020-03-11] MEDS ORDERED: ACETAMINOPHEN 650 MG SUPP (TYLENOL) PR PRN (10:30)
[2020-03-11] MEDS ORDERED: ARTIFICAL TEARS 0.4 ML UNIT DOSE (REFRESH PLUS) OU PRN (10:30)
[2020-03-11] MEDS ORDERED: PROMETHAZINE INJ 25 MG/ML (PHENERGAN) AMP IVP PRN (10:30)
[2020-03-11] MEDS: morphine INJ 4 MG/ML 1 ML (VIAL/SYRINGE) IVP PRN ×2 (11:34→12:58)
--- NOTE | 2020-03-11 13:24 | NUR ---
PALLIATIVE CARE RN in to see patient. was not in the room. Noted are long periods of apnea approx 30-45 sec. in duration. He is still edematous abut less so than yesterday. Lower extremity is cool to the touch, pulses are hardly palpable. No mottling is noted at this time. He does not have any oxygen on a this time as per family request. His RN is keeping him comfortable with PRN medications. No needs at this time.
--- NOTE | 2020-03-11 16:31 | NUR ---
pt is sleeping. family at bedside. pt is no respiratory distress. Addendum: 03/11/20 at 1634 by RICKY BLANCO RT Amended: Links added.
--- NOTE | 2020-03-11 16:39 | NUR ---
patient - at bedside, pastoral and pallative nurse visited with - [place] notified + family choose [facility] in [place] to release the body, for now on hold on for [place] organ donor
--- NOTE | 2020-03-11 20:23 | NUR ---
Rec call Diandra from [place]. Pt is eligible for corneal, skin, and bone. [place] has spoken with [facility] [employer] and they have agreed to provide cooling for body for [place]. It is now okay to notify [place] to receive body.
--- NOTE | 2020-03-11 20:30 | NUR ---
[facility] [employer] notified to receive body.
--- NOTE | 2020-03-11 21:21 | Discharge Summary ---
Discharge Summary Hospital Course Was the Problem List Reviewed?: Yes Hospital Course Date of Admission: Mar 04, 2020 at 09:15 Admission Diagnosis : Family Physician/Provider: Date of Discharge: 03/11/20 Discharge Diagnosis: respiratory failure, COPD, CHF Hospital Course: Lengthy course all of it in ICU until placed on comfort care for severe COPD and CHF EF 10% with severe delirium and no chance of recovery after admitted and urgently intubated for severe sepsis from PNA with bilateral PE and DVT bilaterally. Anticoagulation maintained along with aggressive ICU care ultimately allowed extubation but then reintubated again. Patient was stable then extubated but severity of his med issues no longer enabled recovery potential so he was placed comfort care and with at bedside. Labs and Pending Lab Test: Microbiology 03/04/20 Gram Stain - Final, Complete 03/04/20 Sputum Culture - Final, Complete Usual upper respiratory [place] 03/04/20 Blood Culture - Final, Complete No growth Home Meds Active Reported Ventolin Hfa (Albuterol Sulfate) 18 Gm Hfa.aer.ad 2 Puff INH Q6H PRN Benadryl (Diphenhydramine HCl) 25 Mg Capsule 50 Mg PO Q6H PRN Fenofibrate 160 Mg Tablet 160 Mg PO DAILY Lisinopril 40 Mg Tablet 40 Mg PO DAILY Albuterol Sulfate 2.5 Mg/3 Ml Vial.neb 3 Ml NEB Q4H PRN Venlafaxine HCl ER (Venlafaxine HCl) 75 Mg Cap.er.24h 75 Mg PO DAILY Carvedilol 25 Mg Tablet 25 Mg PO BID Ativan (Lorazepam) 0.5 Mg Tablet 0.5 Mg PO BID PRN Anoro Ellipta 62.5-25 Mcg INH (Umeclidinium Brm/Vilanterol Tr) 1 Each Blst.w.dev 1 Puff INH DAILY Hydrochlorothiazide 25 Mg Tablet 25 Mg PO DAILY Eliquis (Apixaban) 5 Mg Tablet 5 Mg PO BID Assessment/Pt Instructions Discharge Planning: <30 minutes discharge planning Discharge Instructions Pneumonia Vaccine Order Indica: Yes Discharge Physical Examination Vital Signs Vital Signs Date Time Temp Pulse Resp B/P (MAP) Pulse Ox O2 Delivery O2 Flow Rate FiO2 03/10/20 20:15 36.4 129 138/94 95 NIV Bilevel 03/10/20 18:19 22 30.00 03/10/20 16:00 30 General Appearance: Chronically ill Allergies: Coded Allergies: No Known Drug Allergies (Unverified , 03/04/20) Discharge Summary Date of Admission Mar 04, 2020 at 09:15 Date of Discharge Admission Diagnosis Assessment: Acute respiratory failure requiring emergent intubation Recent acute PE diagnosed 03/02/20 placed on Eliquis COPD h/o smoker LORETTA HTN HLP Elevated BNP Plan: ICU consultation Anticoagulation Vent management Supportive care Empiric abx COVID swab pending use PPE in meantime ARF management Consult Dr Rodriguez Comfort Measures/ End of Life Care: Comfort Measures Advance Care discuss with: family member (s) Plan: initiate discussion Discharge Diagnosis Assessment: Acute respiratory failure requiring emergent intubation Recent acute PE diagnosed 03/02/20 placed on Eliquis COPD h/o smoker LORETTA HTN HLP Elevated BNP Bilateral DVT Elevated troponin Plan: ICU consultation Anticoagulation Vent management Supportive care Empiric abx COVID swab neg ARF management Consult Dr Rodriguez 03/06/20: s/p cardiac cath revealing non-ischemic cardiomyopathy Extubate? 03/07/20: Extubate? Monitor closely 03/08/20: Extubated but then reintubated 03/09/20: Sedated Maintain intubation Appreciate critical care 03/10/20: [place] vs. hospice Monitor severe delirium 03/11/20: Comfort care protocol Clinical Quality Measures DVT/VTE Risk/Contraindication: Risk Factor Score Per Nursin RFS Level Per Nursing on Admit: 4+=Very High SELMA WILDE DO Mar 11, 2020 21:21
--- NOTE | 2020-03-11 21:40 | NUR ---
[employer] [place] [employer] attendant (Eamon) here to receive body. (Eamon confirms that they have spoken with [facility] [employer] and will be cooling body for donations).
== END 2020-03-11 15:15 | disposition expired | DRG 208 ==
LOC: ICU 07:41 → OBSVTOIN 09:15 → 4TH 03-10 18:17
PROVIDERS: ADMIT Internal Medicine; ATTEND Internal Medicine
PROC: 02HV33Z Insertion of Infusion Device into Superior Vena Cava, Percutaneous Approach (ICD-10-PCS; principal; 2020-03-04)
PROC: 5A1945Z Respiratory Ventilation, 24-96 Consecutive Hours (ICD-10-PCS; 2020-03-04)
PROC: 0BH17EZ Insertion of Endotracheal Airway into Trachea, Via Natural or Artificial Opening (ICD-10-PCS; 2020-03-04)
PROC: 4A023N7 Measurement of Cardiac Sampling and Pressure, Left Heart, Percutaneous Approach (ICD-10-PCS; 2020-03-06)
PROC: B2111ZZ Fluoroscopy of Multiple Coronary Arteries using Low Osmolar Contrast (ICD-10-PCS; 2020-03-06)
PROC: B2151ZZ Fluoroscopy of Left Heart using Low Osmolar Contrast (ICD-10-PCS; 2020-03-06)
DX: J96.01 Acute respiratory failure with hypoxia (principal); I26.99 Other pulmonary embolism without acute cor pulmonale; J18.9 Pneumonia, unspecified organism; A41.9 Sepsis, unspecified organism; R65.20 Severe sepsis without septic shock; I50.23 Acute on chronic systolic (congestive) heart failure; I82.432 Acute embolism and thrombosis of left popliteal vein; N17.9 Acute kidney failure, unspecified; I42.8 Other cardiomyopathies; Z20.828 Contact with and (suspected) exposure to other viral communicable diseases; Z66 Do not resuscitate; Z51.5 Encounter for palliative care; I27.20 Pulmonary hypertension, unspecified; E87.6 Hypokalemia; K72.90 Hepatic failure, unspecified without coma; J44.9 Chronic obstructive pulmonary disease, unspecified; I11.0 Hypertensive heart disease with heart failure; E78.5 Hyperlipidemia, unspecified; E66.9 Obesity, unspecified; E78.00 Pure hypercholesterolemia, unspecified; I73.9 Peripheral vascular disease, unspecified; Z87.891 Personal history of nicotine dependence; Z79.01 Long term (current) use of anticoagulants; Z68.34 Body mass index [BMI] 34.0-34.9, adult
CPT/HCPCS: 36415; 71045; 80048; 80053; 81000; 82140; 82805; 82962; 83605; 83735; 83880; 84100; 84145; 84478; 84484; 85007; 85025; 85027; 85610; 85730; 87040; 87070; 87205; 87449; 87635; 87804; 87899; 93306; 93458; 93970; 94002; 94003; 94640; 94660; 94760; 94799